=== PATIENT | female | born 1980 | race African-American/Black ===

== ENCOUNTER 2016-04-21 13:43 | Emergency (ER) | payer SELFPAY ==
[2016-04-21 13:57] VITALS: BP 128/90
--- NOTE | 2016-04-21 14:27 | ED ---
Lower Extremity - HPI Summary HPI Summary: Patient presents with right ankle pain after falling last night and hitting her ankle. She was evaluated in this ED for multiple complaints, and all images were read as negative. She has continued pain in the ankle today and wanted to make sure her ankle "really is okay". She has a history of a tib/fib fracture with ORIF and was in a wheelchair for months recovering. She admits she worries about the ankle and doesn't want to go back to a wheelchair. She took half of an 800mg ibuprofen this AM with mild relief and admits the ankle feels better today than it did last night. She has been fully weight bearing on the ankle. - History of Current Complaint Chief Complaint: EDExtremityLower Stated Complaint: RT ANKLE INJURY Time Seen by Provider: 04/21/16 13:58 Hx Obtained From: Patient Hx Last Menstrual Period: 08/13/12 Mechanism Of Injury: Blunt Trauma - hit against the frame of her bed. Onset of Pain: Immediate Onset/Duration: Hours Severity Initially: Severe Severity Currently: Moderate Pain Intensity: 8 Timing: Constant Location: Is Discrete @ - right ankle Character Of Pain: Aching, Stiffness Associated Signs And Symptoms: Positive: Negative Aggravating Factor(s): Standing Alleviating Factor(s): Rest Able to Bear Weight: Yes - with pain - Allergies/Home Medications Allergies/Adverse Reactions: Allergies Allergy/AdvReac Type Severity Reaction Status Date / Time No Known Allergies Allergy Verified 04/21/16 13:56 PMH/Surg Hx/FS Hx/Imm Hx Endocrine/Hematology History: Reports: Hx Anemia Denies: Hx Anticoagulant Therapy, Hx Diabetes, Hx Thyroid Disease Cardiovascular History: Denies: Hx Hypertension, Hx Pacemaker/ICD Respiratory History: Denies: Hx Asthma, Hx Chronic Obstructive Pulmonary Disease (COPD) History: Denies: Hx Renal Disease Musculoskeletal History: Reports: Other Musculoskeletal History - right ankle tib/fib fracture with ORIF Neurological History: Denies: Hx Dementia, Hx Seizures Psychiatric History: Denies: Hx Substance Abuse - Surgical History Surgery Procedure, Year, and Place: RIGHT ANKLE SURGERY - 2003 Infectious Disease History: No Infectious Disease History: Denies: Hx Hepatitis, Hx Human Immunodeficiency Virus (HIV), Traveled Outside the [place] in Last 30 Days - Family History Known Family History: Positive: None - Social History Occupation: Employed Full-time Lives: With Family Alcohol Use: Occasionally Hx Substance Use: Yes Substance Use Type: Reports: Marijuana Substance Use Comment - Amount & Last Used: "once in a while" Hx Tobacco Use: Yes Smoking Status (MU): Heavy Every Day Tobacco Smoker Type: Cigarettes Cessation Counseling: Patient Advised to Stop Review of Systems Positive: Myalgia, Decreased ROM. Negative: Edema Negative: Rash, Bruising Negative: Weakness, Paresthesia, Numbness All Other Systems Reviewed And Are Negative: Yes Physical Exam Triage Information Reviewed: Yes Vital Signs On Initial Exam: Initial Vitals Temp Pulse Resp BP Pulse Ox 99.5 F 91 15 128/90 100 04/21/16 13:45 04/21/16 13:45 04/21/16 13:45 04/21/16 13:45 04/21/16 13:45 Vital Signs Reviewed: Yes Appearance: Positive: Well-Appearing, Pain Distress, Thin Skin: Positive: Warm, Skin Color Reflects Adequate Perfusion, Dry, Soft Head/Face: Positive: Normal Head/Face Inspection Eyes: Positive: EOMI, DAMION, Conjunctiva Clear ENT: Positive: Hearing grossly normal Respiratory/Lung Sounds: Positive: Breath Sounds Present Cardiovascular: Positive: RRR Musculoskeletal: Positive: Limited @ - dorsiflexion to 0, plantar flexion 30; inversion/eversion in 30 degree arc, Pain @ - TTP ATFL and deltoid ligament; non -tender achilles tendson med/lat malleoli; midfoot non-tender. Negative: Edema Right Diagnostics - Vital Signs Vital Signs Temp Pulse Resp BP Pulse Ox 04/21/16 13:45 99.5 F 91 15 128/90 100 - Laboratory Lab Statement: Any lab studies that have been ordered have been reviewed, and results considered in the medical decision making process. Lower Extremity Course/Dx - Course Course Of Treatment: Images from last night were compared with previous x-rays without obvious changes. I recommended the patient use a cane to decrease weight on the ankle and use ibuprofen for pain. - Diagnoses Differential Diagnosis/HQI/PQRI: Positive: Arthritis, Cellulitis, Contusion, Fracture (Closed), Sprain, Strain Provider Diagnoses: Ankle sprain Discharge - Discharge Plan Condition: Stable Disposition: HOME Patient Education Materials: Arthralgia (ED) Forms: *Work Release Referrals: Ab Rivers MD [Medical Doctor] - Additional Instructions: Please use 400mg of ibuprofen three times daily with meals for the next 3-5 days with ice, elevation and a cane to take weight off your ankle to decrease pain and swelling. I've included Dr. Rivers's number if you want to get in touch with an orthopedic doctor for evaluation. Return to the emergency department if your symptoms worsen.
== END 2016-04-21 14:28 | disposition home or self-care (01) ==
LOC: ED 13:43
DX: S93.401A Sprain of unspecified ligament of right ankle, initial encounter (principal); F17.210 Nicotine dependence, cigarettes, uncomplicated; W19.XXXA Unspecified fall, initial encounter; Y92.9 Unspecified place or not applicable
CPT/HCPCS: 99282

== ENCOUNTER 2017-03-04 11:30 | Emergency (ER) | payer MEDICAID ==
[2017-03-04 11:44] VITALS: BP 125/59
--- NOTE | 2017-03-04 11:46 | UC ---
Skin Complaint HPI - HPI Summary HPI Summary: Pt presents with rash to left lower back. She tells me that about 2 weeks ago she developed a scale-like rash to her left lower back. It is itchy and seems to be spreading to her left side and left abdomen. Has tried al butter with no relief. Denies fever, chills, recent illness, ST, SOB, chest pain, abdominal pain, N/V/D/C, dysuria, vaginal discharge or pain, bleeding or drainage from the rash sites. Denies pain, numbness, or tingling. She denies a history of any dermatological disorders. - History of Current Complaint Chief Complaint: UCSkin Time Seen by Provider: 03/04/17 11:46 Stated Complaint: RASH Hx Obtained From: Patient Hx Last Menstrual Period: 02/13/17 Onset/Duration: Gradual Onset - Allergy/Home Medications Allergies/Adverse Reactions: Allergies Allergy/AdvReac Type Severity Reaction Status Date / Time No Known Allergies Allergy Verified 03/04/17 11:44 Review of Systems Constitutional: Negative Skin: Rash - Left lower back, left side, left abdomen. ENT: Negative Respiratory: Negative Cardiovascular: Negative Gastrointestinal: Negative Genitourinary: Negative Neurological: Negative Psychological: Negative All Other Systems Reviewed And Are Negative: Yes PMH/Surg Hx/FS Hx/Imm Hx Previously Healthy: Yes Other History Of: Negative For: Anticoagulant Therapy - Surgical History Surgical History: Yes Surgery Procedure, Year, and Place: RIGHT ANKLE SURGERY - 2003 - Family History Known Family History: Positive: None - Social History Occupation: Employed Full-time Lives: With Family Alcohol Use: Occasionally Substance Use Type: None Substance Use Comment - Amount & Last Used: "once in a while" Smoking Status (MU): Heavy Every Day Tobacco Smoker Type: Cigarettes Amount Used/How Often: 1ppd Household Exposure Type: Cigarettes Cessation Counseling: Counseled 3+Min - 10 Min - Immunization History Most Recent Influenza Vaccination: NOT UTD Most Recent Tetanus Shot: unknown Most Recent Pneumonia Vaccination: never Physical Exam Triage Information Reviewed: Yes Appearance: Well-Appearing, Well-Nourished Vital Signs: Initial Vital Signs Temp 100.1 F 03/04/17 11:39 Pulse 94 03/04/17 11:39 Resp 16 03/04/17 11:39 BP 125/59 03/04/17 11:39 Pulse Ox 97 03/04/17 11:39 Vital Signs Reviewed: Yes ENT: Positive: Pharynx normal, TMs normal, Uvula midline. Negative: Pharyngeal erythema, Nasal congestion, Nasal drainage, TM bulging, TM dull, TM red, Tonsillar swelling, Tonsillar exudate, Sinus tenderness Neck: Positive: Supple, Nontender, No Lymphadenopathy Respiratory: Positive: Chest non-tender, Lungs clear, Normal breath sounds, No respiratory distress, No accessory muscle use Cardiovascular: Positive: RRR, No Murmur, Pulses Normal Abdomen Description: Positive: Nontender, No Organomegaly, Soft. Negative: CVA Tenderness (R), CVA Tenderness (L), Distended, Guarding Bowel Sounds: Positive: Present Neurological: Positive: Alert Psychological: Positive: Age Appropriate Behavior Skin: Positive: Other - On the left flank there is ~9-10cm cluster of 1-2mm papules with scales. Some of these are excoriated. On the left lower side and left abdomen there are scattered 1-2mm papules having the same appearance as those on the left flank. No erythema, edema, drainage, vesicles, or tenderness. Course/Dx - Course Course Of Treatment: Suspect Atopic dermatitis - will try Triamcinolone cream BID for 10 days and have her f/u with dermatology if her symptoms do not start to improve within 3-4 days. - Differential Diagnoses - Skin Complaint Differential Diagnoses: Allergic Reaction, Drug Rash, Eczema, Local Allergic Reaction, Scabies, Systemic Illness, Tick Born Illness, Tinea, Urticaria - Diagnoses Provider Diagnoses: Atopic dermatitis lower back Discharge - Discharge Plan Condition: Stable Disposition: HOME Prescriptions: Triamcinolone 0.1% CREAM(NF) [Kenalog Cream 0.1%(NF)] 1 applic TOPICAL BID #1 tube Patient Education Materials: Eczema (ED) Referrals: Christian Shelby NP [Primary Care Provider] - Mandy Diamond MD [Medical Doctor] - If Needed Additional Instructions: If you develop a fever, SOB, chest pain, new or worsening symptoms - please call your PCP or go to the ED. If your rash worsens or persists beyond 10 days or does not start to improve in 3-4 days, please call dermatology at the number below to schedule a follow up appointment.
== END 2017-03-04 12:09 | disposition home or self-care (01) ==
LOC: UCEAST 11:30
DX: L20.9 Atopic dermatitis, unspecified (principal); F17.210 Nicotine dependence, cigarettes, uncomplicated
CPT/HCPCS: 99212; G0463

== ENCOUNTER 2017-05-18 07:45 | Emergency (ER) | payer OTHER ==
[2017-05-18 08:00] VITALS: BP 140/96
--- NOTE | 2017-05-18 11:45 | ED ---
Jacob Veliz Angela, scribed for Carlin Garcia MD on 05/18/17 at 0822 . Skin Complaint - HPI Summary HPI Summary: This pt is a 36 y/o female presenting to [facility] c/o pruritic rash on bilateral hands. Pt reports she had a kidney infection 1.5 years ago and states this may be returning. She notes her rash on hands is very itchy. Pt has been drinking an increased amount of fluids in the past 2 days. She reports she vomited yesterday from drinking too much water. Denies throat tightening, difficulty breathing, chest pain. Pt additionally states she has watery blisters on her left foot. She reports she had an infection on her left foot 2 years ago. 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 She notes she was prescribed an eczema cream by her editor newspaper but states it is not working. PMHx: kidney infection 1.5 years ago. - History of Current Complaint Chief Complaint: EDRashSkinAbscess Time Seen by Provider: 05/18/17 07:57 Stated Complaint: RASH Hx Obtained From: Patient Hx Last Menstrual Period: 02/13/17 Onset/Duration: Started Days Ago, Still Present Skin Exposure Onset/Duration: Days Ago Timing: Lasting Days Current Severity: None Pain Intensity: 0 - no pain Pain Scale Used: 0-10 Numeric Skin Location: Hand - bilateral, Foot - left Character: Pruritus, Redness Aggravating Symptom(s): Nothing Alleviating Symptom(s): Nothing Associated Signs & Symptoms: Rash - on bilateral hands - Additional Pertinent History Primary Care Physician: [id number] - Allergy/Home Medications Allergies/Adverse Reactions: Allergies Allergy/AdvReac Type Severity Reaction Status Date / Time No Known Allergies Allergy Verified 05/18/17 08:00 PMH/Surg Hx/FS Hx/Imm Hx Endocrine/Hematology History: Reports: Hx Anemia Denies: Hx Anticoagulant Therapy, Hx Diabetes, Hx Thyroid Disease Cardiovascular History: Denies: Hx Hypertension, Hx Pacemaker/ICD Respiratory History: Denies: Hx Asthma, Hx Chronic Obstructive Pulmonary Disease (COPD) History: Denies: Hx Renal Disease Musculoskeletal History: Reports: Other Musculoskeletal History - right ankle tib/fib fracture with ORIF Neurological History: Denies: Hx Dementia, Hx Seizures Psychiatric History: Denies: Hx Substance Abuse - Surgical History Surgery Procedure, Year, and Place: RIGHT ANKLE SURGERY - 2003 Infectious Disease History: No Infectious Disease History: Denies: Hx Hepatitis, Hx Human Immunodeficiency Virus (HIV), Traveled Outside the [place] in Last 30 Days - Family History Known Family History: Positive: None - Social History Alcohol Use: Weekly Hx Substance Use: Yes Substance Use Type: Reports: None Substance Use Comment - Amount & Last Used: "once in a while" Hx Tobacco Use: Yes Smoking Status (MU): Heavy Every Day Tobacco Smoker Type: Cigarettes Amount Used/How Often: 1ppd Review of Systems Negative: Fever, Chills Eyes: Negative ENT: Negative Negative: Chest Pain Negative: Shortness Of Breath Gastrointestinal: Negative Skin: Other - left heel redness Positive: Rash - pruritic All Other Systems Reviewed And Are Negative: Yes Physical Exam - Summary Physical Exam Summary: VITAL SIGNS: Reviewed. GENERAL: Patient is a well-developed and nourished female who is lying comfortable in the stretcher. Patient is not in any acute respiratory distress. HEAD AND FACE: No signs of trauma. No ecchymosis, hematomas or skull depressions. No sinus tenderness. EYES: PERRLA, EOMI x 2, No injected conjunctiva, no nystagmus. EARS: Hearing grossly intact. Ear canals and tympanic membranes are within normal limits. MOUTH: Oropharynx within normal limits. NECK: Supple, trachea is midline, no adenopathy, no JVD, no carotid bruit, no c- spine tenderness, neck with full ROM. CHEST: Symmetric, no tenderness at palpation LUNGS: Clear to auscultation bilaterally. No wheezing or crackles. CVS: Regular rate and rhythm, S1 and S2 present, no murmurs or gallops appreciated. ABDOMEN: Soft, non-tender. No signs of distention. No rebound no guarding, and no masses palpated. Bowel sounds are normal. EXTREMITIES: FROM in all major joints, no edema, no cyanosis or clubbing. NEURO: Alert and oriented x 3. No acute neurological deficits. Speech is normal and follows commands. SKIN: Dry and warm. Pt has vesicular papular rash on hands and erythema in left heel. Triage Information Reviewed: Yes Vital Signs On Initial Exam: Initial Vitals Temp Pulse Resp BP Pulse Ox 99.9 F 98 16 140/96 99 05/18/17 07:50 05/18/17 07:50 03/07/18 07:50 05/18/17 07:50 05/18/17 07:50 Vital Signs Reviewed: Yes Diagnostics - Vital Signs Vital Signs Temp Pulse Resp BP Pulse Ox 05/18/17 07:50 99.9 F 98 16 140/96 99 - Laboratory Lab Statement: Any lab studies that have been ordered have been reviewed, and results considered in the medical decision making process. Course/Dx - Course Assessment/Plan: This pt is a 36 y/o female presenting to [facility] c/o pruritic rash on bilateral hands. Pt reports she had a kidney infection 1.5 years ago and states this may be returning. She notes her rash on hands is very itchy. Pt has been drinking an increased amount of fluids in the past 2 days. She reports she vomited yesterday from drinking too much water. Denies throat tightening, difficulty breathing, chest pain. Pt additionally states she has watery blisters on her left foot. She reports she had an infection on her left foot 2 years ago. 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 The pt seems to be dealing with dyshidrotic eczema on bilateral hands and cellulitis in left heel. She will be given a prescription for corticosteroid (Valisone) and Keflex. She is instructed to follow up with a editor newspaper. Pt will be discharged to home with a referral to a editor newspaper. Pt understands and agrees. Pt is hemodynamically stable, alert and oriented x3. - Diagnoses Provider Diagnoses: Dyshidrotic eczema, Cellulitis Discharge - Discharge Plan Condition: Stable Disposition: HOME Prescriptions: Betamethasone Arely 0.1% CRM(NF) [Valisone 0.1% CM(NF)] 1 applic TOPICAL BID #30 grams Cephalexin CAP* [Keflex CAP*] 250 mg PO TID #30 cap Patient Education Materials: Cellulitis (ED), Dyshidrotic Eczema (ED) Referrals: [facility] [Provider Group] (Address: [address] [place] [address] ) Christian Shelby NP [Primary Care Provider] - Additional Instructions: Please follow up with your primary care provider and editor newspaper. RETURN TO THE ED FOR ANY WORSENING SYMPTOMS. The documentation as recorded by the Jacob bell Angela accurately reflects the service I personally performed and the decisions made by me, Carlin Garcia MD.
== END 2017-05-18 08:35 | disposition home or self-care (01) ==
LOC: ED 07:45
DX: L30.1 Dyshidrosis [pompholyx] (principal); L03.90 Cellulitis, unspecified; R21 Rash and other nonspecific skin eruption; F17.210 Nicotine dependence, cigarettes, uncomplicated
CPT/HCPCS: 99281

== ENCOUNTER 2017-12-08 11:47 | Emergency (ER) | payer OTHER ==
[2017-12-08 12:26] VITALS: BP 135/91
--- NOTE | 2017-12-08 12:43 | UC ---
Skin Complaint HPI - HPI Summary HPI Summary: 37 y/o female presents to the urgent care c/o B/L hand and left forearm w/ an itchy and painful rash for the past week. 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 She states she had a similar rash about 6 months ago and was Rx an steroidal cream which resolved rash. But now it has returned. She first develops some blisters and then it becomes like papule. the left arm in now warm to touch and painful. Pain is dull,, 3/10. She has used OTC creams w /o any improvement. Pt denies fever, SOB, chest pain, abdominal pain, N/V/D. - History of Current Complaint Chief Complaint: UCSkin Time Seen by Provider: 12/08/17 12:42 Stated Complaint: RASH CONGESTION Hx Obtained From: Patient Hx Last Menstrual Period: 11/19/17 Onset/Duration: Gradual Onset, Lasting Weeks - 1 week, Still Present, Worse Since - today Skin Exposure Onset/Duration: Weeks Ago - same rash on B/l hands on and off since last year, but lately has worsen for the past week, Worse Since: - today Timing: Constant Onset Severity: Mild Current Severity: Moderate Pain Intensity: 8 - at touch Pain Scale Used: 0-10 Numeric Location: Diffuse - b/L hands, Hand (Left) - left fore arm similar rash but it is co-infected Character: Swelling, Pruritus, Pain, Redness Aggravating Factor(s): Touch Alleviating Factor(s): OTC Creams/Salves - Allergy/Home Medications Allergies/Adverse Reactions: Allergies Allergy/AdvReac Type Severity Reaction Status Date / Time No Known Allergies Allergy Verified 12/08/17 12:21 Review of Systems Constitutional: Negative Skin: Rash - B/L hands and left fore arm w/ a painful and itchy rash Eyes: Negative ENT: Negative Respiratory: Negative Cardiovascular: Negative Gastrointestinal: Negative Genitourinary: Negative Motor: Negative Neurovascular: Negative Musculoskeletal: Other: - B/L hand and left forearm pain s/p rash Neurological: Negative Psychological: Negative Is Patient Immunocompromised?: No All Other Systems Reviewed And Are Negative: Yes PMH/Surg Hx/FS Hx/Imm Hx Other History Of: Negative For: Anticoagulant Therapy - Surgical History Surgical History: Yes Surgery Procedure, Year, and Place: RIGHT ANKLE SURGERY - 2003 - Family History Known Family History: Positive: None - Social History Alcohol Use: Weekly Substance Use Type: None Substance Use Comment - Amount & Last Used: "once in a while" Smoking Status (MU): Heavy Every Day Tobacco Smoker Type: Cigarettes Amount Used/How Often: 1ppd Household Exposure Type: Cigarettes - Immunization History Most Recent Influenza Vaccination: NOT UTD Most Recent Tetanus Shot: unknown Most Recent Pneumonia Vaccination: never Physical Exam - Summary Physical Exam Summary: Vital Signs Reviewed: Yes General: well developed, well nourished female sitting in the examining table w/ o any apparent distress. Eyes: Positive: Conjunctiva Clear - PERRLA, EOMI ENT: Positive: Normal ENT inspection, Hearing grossly normal, Pharynx normal, TMs normal Neck: Positive: Supple, Nontender, No Lymphadenopathy Respiratory: Positive: Chest nontender, Lungs clear, Normal breath sounds Cardiovascular: Positive: RRR, No Murmur, Pulses Normal Abdomen Description: Positive: Nontender, No Organomegaly, Soft. Negative: CVA Tenderness (R), CVA Tenderness (L) Bowel Sounds: Positive: Present Musculoskeletal: Positive: Strength Intact, ROM Intact, No Edema Neurological Exam: Normal Psychological Exam: Normal Skin: Positive: rashes -b/L hand and left fore arms w/ erythematous maculopapular eruption. The left forearm rash has surrounding erythema w/ indistinct borders, warm to touch, swelling and tender to palpation, sensation intact, capillary refill intact, pulses WNL, FROM of upper extremities. Triage Information Reviewed: Yes Vital Signs: Initial Vital Signs Temp 98.1 F 12/08/17 12:21 Pulse 85 12/08/17 12:21 Resp 20 12/08/17 12:21 BP 135/91 12/08/17 12:21 Pulse Ox 100 12/08/17 12:21 Course/Dx - Course Course Of Treatment: 37 y/o female presents to the urgent care c/o B/L hand and left forearm w/ an itchy and painful rash for the past week. 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 She states she had a similar rash about 6 months ago and was Rx an steroidal cream which resolved rash. But now it has returned. She first develops some blisters and then it becomes like papule. the left arm in now warm to touch and painful. Pain is dull,, 3/10. She has used OTC creams w/o any improvement. Pt denies fever, SOB, chest pain, abdominal pain, N/V/D.Hx obtained. Pt w/ Left forearm cellultis and probably a contact dermatitis on examination. Pt Rx Keflex PO and Bethametasone topical cream. Srongy advised to keep hands lubricated and wear gloves to wash dishes. Pt also given House Piping Inspector referral to [facility] treatment if not improvement of rash. Pt's BP is elevated today advised to decrease salt in diet, monitor BP and f/u with PCP for further management. D/C instructions explained. Pt understood and agreed w/ plan of care. - Differential Diagnoses - Skin Complaint Differential Diagnoses: Abscess, Cellulitis, Contact Dermatitis, Eczema, Local Allergic Reaction, Poison Kay, Poison [place], Urticaria - Diagnoses Provider Diagnoses: 1- B/L hand contact dermatitis. 2-Left forearm cellulitis. 3-Elevated BP w/o Hx of HTN Discharge - Sign-Out/Discharge Documenting (check all that apply): Patient Departure - D/c home All imaging exams completed and their final reports reviewed: No Studies - Discharge Plan Condition: Stable Disposition: HOME Prescriptions: Betamethasone Arely 0.1% CRM(NF) [Valisone 0.1% CM(NF)] 1 applic TOPICAL BID #1 tube Cephalexin CAP* [Keflex CAP*] 500 mg PO QID #28 cap Patient Education Materials: Contact Dermatitis (ED), Cellulitis (ED) Forms: *Work Release Referrals: Olamide Bray [Medical Doctor] - Christian Shelby NP [Primary Care Provider] - 3 Days Additional Instructions: 1-Please take full course of Antibiotic. 2- Please apply Bethametasone topical cream as directed. Wear cotton gloves at all times and if your have to wash dishes wear plastic gloves. Keeps hand dry. 2- If redness and swelling doubles in size after 48 hrs of taking antibiotic and fever develops please go to the ER immediately. 3-Take Ibuprofen PO or Tylenol PO to alleviate pain. 4-Please F/u with House Piping Inspector Dr Bray for further management on your chronic rash. 5-Your BP is elevated today. please decrease salt in your diet, monitor BP and if it continues to be elevated please f/u with your PCP for further management - Billing Disposition and Condition Condition: STABLE Disposition: Home - Attestation Statements Provider Attestation: I was available for consult. This patient was seen by the [facility]. The patient was not presented to, seen by, or examined by me. -Maritza
== END 2017-12-08 13:24 | disposition home or self-care (01) ==
LOC: UCEAST 11:47
DX: L25.9 Unspecified contact dermatitis, unspecified cause (principal); L03.114 Cellulitis of left upper limb; R03.0 Elevated blood-pressure reading, without diagnosis of hypertension; F17.210 Nicotine dependence, cigarettes, uncomplicated
CPT/HCPCS: 99212; G0463

== ENCOUNTER 2018-03-12 14:37 | Emergency (ER) | payer OTHER ==
--- NOTE | 2018-03-12 16:40 | ED ---
Skin Complaint - HPI Summary HPI Summary: 37-year-old female presents with rash for the past couple days. She states she has had this rash in the past. She states that she treated with steroid cream and antibiotic. States she has some antibiotics left over from last time she had a rash and she's been taking them without any relief for past 4 days. She does not have any of the cream left. She states that the rash started with some water blisters on her feet and then she developed the rash on her hands. In then spreads to her neck and abdomen. She denies any fevers. She states her rash is itchy. She has been seen by dermatology before for this. No chest pain, shortness of breath, cough, abdominal pain, or urinary symptoms. - History of Current Complaint Chief Complaint: EDRashSkinAbscess Time Seen by Provider: 03/12/18 16:08 Stated Complaint: HAND HURT Hx Last Menstrual Period: 11/19/17 Pain Intensity: 0 - Additional Pertinent History Primary Care Physician: AFTAB - Allergy/Home Medications Allergies/Adverse Reactions: Allergies Allergy/AdvReac Type Severity Reaction Status Date / Time No Known Allergies Allergy Verified 03/12/18 14:43 PMH/Surg Hx/FS Hx/Imm Hx Endocrine/Hematology History: Reports: Hx Anemia Denies: Hx Anticoagulant Therapy, Hx Diabetes, Hx Thyroid Disease Cardiovascular History: Denies: Hx Hypertension, Hx Pacemaker/ICD Respiratory History: Denies: Hx Asthma, Hx Chronic Obstructive Pulmonary Disease (COPD) GI History: Denies: Hx Ulcer History: Denies: Hx Renal Disease Musculoskeletal History: Reports: Other Musculoskeletal History - right ankle tib/fib fracture with ORIF Neurological History: Denies: Hx Dementia, Hx Seizures Psychiatric History: Denies: Hx Substance Abuse - Surgical History Surgery Procedure, Year, and Place: RIGHT ANKLE SURGERY - 2003 Infectious Disease History: No Infectious Disease History: Denies: Hx Hepatitis, Hx Human Immunodeficiency Virus (HIV), Traveled Outside the [place] in Last 30 Days - Family History Known Family History: Positive: None - Social History Alcohol Use: Weekly Hx Substance Use: Yes Substance Use Type: Reports: Marijuana Substance Use Comment - Amount & Last Used: "once in a while" Hx Tobacco Use: Yes Smoking Status (MU): Heavy Every Day Tobacco Smoker Type: Cigarettes Amount Used/How Often: 1ppd Review of Systems Negative: Fever Negative: Chest Pain Negative: Shortness Of Breath Positive: Rash All Other Systems Reviewed And Are Negative: Yes Physical Exam Triage Information Reviewed: Yes Vital Signs On Initial Exam: Initial Vitals Temp Pulse Resp BP Pulse Ox 98.9 F 93 16 141/101 98 03/12/18 14:43 03/12/18 14:43 03/12/18 14:43 03/12/18 14:43 03/12/18 14:43 Vital Signs Reviewed: Yes Appearance: Positive: Well-Appearing Skin: Positive: Warm, Dry, Other - papular lesions on hands, stomach and neck Head/Face: Positive: Normal Head/Face Inspection Eyes: Positive: Normal, Conjunctiva Clear ENT: Positive: Pharynx normal Respiratory/Lung Sounds: Positive: Clear to Auscultation, Breath Sounds Present Cardiovascular: Positive: Normal, RRR Musculoskeletal: Positive: Normal Neurological: Positive: Normal Psychiatric: Positive: Normal Diagnostics - Vital Signs Vital Signs Temp Pulse Resp BP Pulse Ox 03/12/18 14:43 98.9 F 93 16 141/101 98 - Laboratory Lab Statement: Any lab studies that have been ordered have been reviewed, and results considered in the medical decision making process. Course/Dx - Course Course Of Treatment: 37-year-old female presents with rash for the past couple days. She states she has had this rash in the past. She states that she treated with steroid cream and antibiotic. States she has some antibiotics left over from last time she had a rash and she's been taking them without any relief for past 4 days. She does not have any of the cream left. She states that the rash started with some water blisters on her feet and then she developed the rash on her hands. In then spreads to her neck and abdomen. She denies any fevers. She states her rash is itchy. She has been seen by dermatology before for this. No chest pain, shortness of breath, cough, abdominal pain, or urinary symptoms. on exam has papules on hands, neck and abd. no evidence of cellulitis at the moment. patient requesting script for antibiotics so will send script but advised to wait until develops signs of cellulitis such as spreading redness. advised not to itch the area. gave script for triaminolone and told to follow up with derm if no improvement. patient understand and agrees with plan. - Differential Diagnoses - Skin Complaint Differential Diagnoses: Cellulitis, Contact Dermatitis, Eczema - Diagnoses Provider Diagnoses: Eczema Discharge - Sign-Out/Discharge Documenting (check all that apply): Patient Departure - Discharge Plan Condition: Good Disposition: HOME Prescriptions: Cephalexin CAP* [Keflex CAP*] 500 mg PO BID #14 cap Triamcinolone 0.1% OINT(NF) [Kenalog 0.1% OINT(NF)] 1 applic .SEE ORDER BID #1 applic Patient Education Materials: Eczema (ED) Referrals: Christian Shelby NP [Primary Care Provider] - Additional Instructions: apply triamcinolone twice a day for 10 days Start keflex if notice spreading redness to area, take twice a day for 7 days Follow up with dermatology Return to ED if develop any new or worsening symptoms - Billing Disposition and Condition Condition: GOOD Disposition: Home
[2018-03-12 16:55] VITALS: BP 0/0
== END 2018-03-12 16:54 | disposition home or self-care (01) ==
LOC: ED 14:37
DX: L30.9 Dermatitis, unspecified (principal)
CPT/HCPCS: 99282

== ENCOUNTER 2018-08-28 17:41 | Emergency (ER) | payer SELFPAY ==
[2018-08-28] MEDS ORDERED: NS 0.9% 1000 ML** 1,000 ML IV ONE (20:44)
[2018-08-28] MEDS ORDERED: Ketorolac INJ* 30 MG/ML 1 ML VIAL IV PUSH ONE (20:44)
[2018-08-28 21:29] LABS: Hematocrit 27 % (35-47); Hemoglobin 8.6 g/dL (12.0-16.0); Mean Corpuscular HGB Conc 32 g/dL (31-36); Mean Corpuscular Hemoglobin 23 pg (27-31); Mean Corpuscular Volume 71 fL (80-97); Mean Platelet Volume 10.9 fL (7.4-10.4); Platelet Count 398 10^3/uL (150-450); Red Cell Distribution Width 26 % (10-15); White Blood Count 9.5 10^3/uL (3.5-10.8)
[2018-08-28 21:36] LABS: Albumin 3.8 g/dL (3.2-5.2); Albumin/Globulin Ratio 1.2 (1-3); BUN/Creatinine Ratio 11.5 (8-20); C Reactive Protein 3.74 mg/L (<8.01); Calcium 8.8 mg/dL (8.6-10.3); EGFR African American 88.2 (>60); EGFR Non-African American 72.9 (>60); Globulin 3.3 g/dL (2-4); Magnesium 2.1 mg/dL (1.9-2.7); Total Bilirubin 0.3 mg/dL (0.2-1.0); Total Protein 7.1 g/dL (6.4-8.9)
--- NOTE | 2018-08-28 21:44 | ED ---
Headache - HPI Summary HPI Summary: 37-year-old female presents with rash on her feet and hands for the past week. She also admits to headache. She admits to some chest tightness. She states chest tightness has resolved. She denies any shortness breath. No palpitations. No abdominal pain. No nausea vomiting. Denies any urinary symptoms. Does have a history of kidney infection. Has been treated for eczema for her hands but has not been working with cream prescribed. She followed up with dermatology and they did not help at all per patient. Denies any fevers or chills. - History Of Current Complaint Chief Complaint: EDHeadache Stated Complaint: HEADACHE, RASH ON HAND/BACK PER PT Time Seen by Provider: 08/28/18 20:36 Hx Last Menstrual Period: 11/19/17 - Allergies/Home Medications Allergies/Adverse Reactions: Allergies Allergy/AdvReac Type Severity Reaction Status Date / Time No Known Allergies Allergy Verified 08/28/18 17:47 PMH/Surg Hx/FS Hx/Imm Hx Endocrine/Hematology History: Reports: Hx Anemia Denies: Hx Anticoagulant Therapy, Hx Diabetes, Hx Thyroid Disease Cardiovascular History: Denies: Hx Hypertension, Hx Pacemaker/ICD Respiratory History: Denies: Hx Asthma, Hx Chronic Obstructive Pulmonary Disease (COPD) GI History: Denies: Hx Ulcer History: Denies: Hx Renal Disease Musculoskeletal History: Reports: Other Musculoskeletal History - right ankle tib/fib fracture with ORIF Neurological History: Denies: Hx Dementia, Hx Seizures Psychiatric History: Denies: Hx Substance Abuse - Surgical History Surgery Procedure, Year, and Place: RIGHT ANKLE SURGERY - 2003 Infectious Disease History: No Infectious Disease History: Denies: Hx Hepatitis, Hx Human Immunodeficiency Virus (HIV), Traveled Outside the [place] in Last 30 Days - Family History Known Family History: Positive: None - Social History Alcohol Use: Weekly Hx Substance Use: Yes Substance Use Type: Reports: Marijuana Substance Use Comment - Amount & Last Used: "once in a while" Hx Tobacco Use: Yes Smoking Status (MU): Heavy Every Day Tobacco Smoker Type: Cigarettes Amount Used/How Often: 1ppd Review of Systems Negative: Fever Positive: Chest Pain Negative: Shortness Of Breath, Cough Positive: Rash Positive: Headache All Other Systems Reviewed And Are Negative: Yes Physical Exam Triage Information Reviewed: Yes Vital Signs On Initial Exam: Initial Vitals Temp Pulse Resp BP Pulse Ox 98.1 F 98 20 134/82 100 08/28/18 17:43 08/28/18 17:43 08/28/18 17:43 08/28/18 17:43 08/28/18 17:43 Vital Signs Reviewed: Yes Appearance: Positive: Well-Appearing Skin: Positive: Warm, Dry, Other Head/Face: Positive: Normal Head/Face Inspection Eyes: Positive: Normal, EOMI, DAMION, Conjunctiva Clear ENT: Positive: Normal ENT inspection, Pharynx normal, TMs normal Respiratory/Lung Sounds: Positive: Clear to Auscultation, Breath Sounds Present Cardiovascular: Positive: Normal, RRR Diagnostics - Vital Signs Vital Signs Temp Pulse Resp BP Pulse Ox 08/28/18 20:18 98 F 87 18 111/89 100 08/28/18 17:43 98.1 F 98 20 134/82 100 - Laboratory Lab Results: Lab Results 08/28/18 08/28/18 08/28/18 Range/Units 21:11 21:11 21:11 WBC 9.5 (3.5-10.8) 10^3/uL RBC 3.80 (3.70-4.87) 10^6 /uL Hgb 8.6 L (12.0-16.0) g/dL Hct 27 L (35-47) % MCV 71 L (80-97) fL MCH 23 L (27-31) pg MCHC 32 (31-36) g/dL RDW 26 H (10-15) % Plt Count 398 (150-450) 10^3/uL MPV 10.9 H (7.4-10.4) fL Neut % (Auto) Pending Lymph % (Auto) Pending [place] % (Auto) Pending Eos % (Auto) Pending Baso % (Auto) Pending Absolute Neuts (auto) Pending Absolute Lymphs (auto) Pending Absolute Monos (auto) Pending Absolute Eos (auto) Pending Absolute Basos (auto) Pending Absolute Nucleated RBC Pending Nucleated RBC % Pending Sodium 137 (135-145) mmol/L Potassium 4.0 (3.5-5.0) mmol/L Chloride 107 (101-111) mmol/L Carbon Dioxide 25 (22-32) mmol/L Anion Gap 5 (2-11) mmol/L BUN 10 (6-24) mg/dL Creatinine 0.87 (0.51-0.95) mg/dL Est GFR ( Amer) 88.2 (>60) Est GFR (Non-Af Amer) 72.9 (>60) BUN/Creatinine Ratio 11.5 (8-20) Glucose 93 (70-100) mg/dL Lactic Acid 1.2 (0.5-2.0) mmol/L Calcium 8.8 (8.6-10.3) mg/dL Magnesium 2.1 (1.9-2.7) mg/dL Total Bilirubin 0.30 (0.2-1.0) mg/dL AST 16 (13-39) U/L ALT 9 (7-52) U/L Alkaline Phosphatase 48 (34-104) U/L Troponin I 0.00 (<0.04) ng/mL C-Reactive Protein 3.74 (<8.01) mg/L Total Protein 7.1 (6.4-8.9) g/dL Albumin 3.8 (3.2-5.2) g/dL Globulin 3.3 (2-4) g/dL Albumin/Globulin Ratio 1.2 (1-3) Lipase 35 (11.0-82.0) U/L Result Diagrams: 08/28/18 21:11 08/28/18 21:11 Lab Statement: Any lab studies that have been ordered have been reviewed, and results considered in the medical decision making process. - EKG No standard instances Cardiac Rate: NL EKG Rhythm: Sinus Rhythm Summary of EKG Findings: sinus rhythm Re-Evaluation - Re-Evaluation First Eval Change: Improved Comment: headache resolves, no chest pain Headache Course/Dx - Course Course Of Treatment: 37-year-old female presents with rash on her feet and hands for the past week. She also admits to headache. She admits to some chest tightness. She states chest tightness has resolved. She denies any shortness breath. No palpitations. No abdominal pain. No nausea vomiting. Denies any urinary symptoms. Does have a history of kidney infection. Has been treated for eczema for her hands but has not been working with cream prescribed. She followed up with dermatology and they did not help at all per patient. Denies any fevers or chills. On exam has blister like lesions on hands and feet most consistent with dyshidrotic eczema. No signs of secondary infection. Lab work within normal limits. Gave Toradol fluids and feeling better. Headache has resolved. no recurrent chest pain. EKG shows sinus rhythm. We'll have follow-up with primary about headache and chest pain. We' ll have follow-up with dermatology about eczema. gave short course of steroids as patient states that rash has been getting worse. Also gave topical steroid and antibiotic. Patient understands agrees the plan. - Diagnoses Differential Diagnosis/HQI/PQRI: Tension Headache, Viral Syndrome, Other - dyshidrotic eczema Provider Diagnoses: Headache, Rash, Atypical chest pain Discharge - Sign-Out/Discharge Documenting (check all that apply): Patient Departure Patient Received Moderate/Deep Sedation with Procedure: No - Discharge Plan Condition: Good Disposition: HOME Prescriptions: methylPREDNISolone [Medrol Dosepak 4 MG*] 4 mg PO .SEE FREEDOM INSTRUCTION #1 packet Triamcinolone 0.1% OINT(NF) [Kenalog 0.1% OINT(NF)] 1 applic .SEE ORDER BID #1 applic Patient Education Materials: Dyshidrotic Eczema (ED) Referrals: Christian Shelby NP [Primary Care Provider] - Len Whitman MD [Medical Doctor] - Additional Instructions: take steroid package as prescribed Take tyenlol or ibuprofen every 6 hours as needed for pain apply topical antibiotic follow up with dermatology follow up with primary Return to ED if develop any new or worsening symptoms - Billing Disposition and Condition Condition: GOOD Disposition: Home
[2018-08-28 21:45] LABS: Microcytosis 1+; Platelet Morphology Large
[2018-08-28 21:47] LABS: ABS Basophils 0.2 10^3/ul (0-0.2); ABS Eosinophils 0.4 10^3/ul (0-0.6); ABS Lymphocytes 2.9 10^3/ul (1.0-4.8); ABS Monocytes 1.2 10^3/ul (0-0.8); ABS Neutrophils 4.9 10^3/ul (1.5-7.7); Eosinophil % 3.9 %; Lymphocyte % 30.8 %; Nucleated Red Blood Cells % 0.1
[2018-08-28] MEDS ORDERED: methylPREDNISolone 125 MG* 2 ML VIAL IV ONE (22:03)
[2018-08-28] MEDS ORDERED: Bacitracin OINTMENT* 0.5% 0.5 oz TUBE TOPICAL ONE (22:03)
[2018-08-28 23:03] VITALS: BP 122/75
== END 2018-08-28 22:50 | disposition home or self-care (01) ==
LOC: ED 17:41
DX: R51 Headache (principal); R07.89 Other chest pain; R21 Rash and other nonspecific skin eruption; F17.210 Nicotine dependence, cigarettes, uncomplicated
CPT/HCPCS: 36415; 80053; 83605; 83690; 83735; 84484; 85025; 85060; 86140; 93005; 96361; 96374; 96375; 99283; A9270-GY; J1885; J2930

== ENCOUNTER 2018-10-25 08:17 | Emergency (ER) | payer SELFPAY ==
[2018-10-25 08:21] VITALS: BP 138/85
--- NOTE | 2018-10-25 08:36 | ED ---
Skin Complaint - HPI Summary HPI Summary: 37-year-old female presents with rash on hands for the past couple days. She states that she's had this rash in the past. Denies any new soaps or products. No new contacts. She states that in the past rash responded well to medrol. She states that she is using triamcinolone but the creams working any more. She denies any fevers. No spreading redness redness. She states is very itchy. She states she has been trying not to scratch at it. She has been not been keeping her hands moist. Denies any other symptoms. - History of Current Complaint Chief Complaint: EDRashSkinAbscess Time Seen by Provider: 10/25/18 08:29 Stated Complaint: RASH ON HANDS PER PT Hx Last Menstrual Period: 11/19/17 Pain Intensity: 0 - Additional Pertinent History Primary Care Physician: [id number] - Allergy/Home Medications Allergies/Adverse Reactions: Allergies Allergy/AdvReac Type Severity Reaction Status Date / Time No Known Allergies Allergy Verified 10/25/18 08:22 PMH/Surg Hx/FS Hx/Imm Hx Endocrine/Hematology History: Reports: Hx Anemia Denies: Hx Anticoagulant Therapy, Hx Diabetes, Hx Thyroid Disease Cardiovascular History: Denies: Hx Hypertension, Hx Pacemaker/ICD Respiratory History: Denies: Hx Asthma, Hx Chronic Obstructive Pulmonary Disease (COPD) GI History: Denies: Hx Ulcer History: Denies: Hx Renal Disease Musculoskeletal History: Reports: Other Musculoskeletal History - right ankle tib/fib fracture with ORIF Neurological History: Denies: Hx Dementia, Hx Seizures Psychiatric History: Denies: Hx Substance Abuse - Surgical History Surgery Procedure, Year, and Place: RIGHT ANKLE SURGERY - 2003 Infectious Disease History: No Infectious Disease History: Denies: Hx Hepatitis, Hx Human Immunodeficiency Virus (HIV), Traveled Outside the [place] in Last 30 Days - Family History Known Family History: Positive: None - Social History Alcohol Use: Weekly Hx Substance Use: Yes Substance Use Type: Reports: Marijuana Substance Use Comment - Amount & Last Used: "once in a while" Hx Tobacco Use: Yes Smoking Status (MU): Heavy Every Day Tobacco Smoker Type: Cigarettes Amount Used/How Often: 1ppd Review of Systems Negative: Fever Negative: Chest Pain Negative: Shortness Of Breath Positive: Rash All Other Systems Reviewed And Are Negative: Yes Physical Exam Triage Information Reviewed: Yes Vital Signs On Initial Exam: Initial Vitals Temp Pulse Resp BP Pulse Ox 99.3 F 78 16 138/85 99 10/25/18 08:18 10/25/18 08:18 10/25/18 08:18 10/25/18 08:18 10/25/18 08:18 Vital Signs Reviewed: Yes Appearance: Positive: Well-Appearing Skin: Positive: Warm, Dry, Other - vesicular papular rash on hands Head/Face: Positive: Normal Head/Face Inspection Eyes: Positive: Normal, Conjunctiva Clear ENT: Positive: Pharynx normal Respiratory/Lung Sounds: Positive: Clear to Auscultation, Breath Sounds Present Cardiovascular: Positive: Normal, RRR Musculoskeletal: Positive: Normal Neurological: Positive: Normal Psychiatric: Positive: Normal Diagnostics - Vital Signs Vital Signs Temp Pulse Resp BP Pulse Ox 10/25/18 08:18 99.3 F 78 16 138/85 99 - Laboratory Lab Statement: Any lab studies that have been ordered have been reviewed, and results considered in the medical decision making process. Course/Dx - Course Course Of Treatment: 37-year-old female presents with rash on hands for the past couple days. She states that she's had this rash in the past. Denies any new soaps or products. No new contacts. She states that in the past rash responded well to medrol. She states that she is using triamcinolone but the creams working any more. She denies any fevers. No spreading redness redness. She states is very itchy. She states she has been trying not to scratch at it. She has been not been keeping her hands moist. Denies any other symptoms. On exam has a vascular papular rash on bilateral hands. Although it appears mild at this time will place on short course of steroids to help prevent it from getting worst. No evidence of secondary infection. Will place on betamethasone to see if that works better. 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 Patient understands agrees with plan. - Differential Diagnoses - Skin Complaint Differential Diagnoses: Cellulitis, Contact Dermatitis, Eczema - Diagnoses Provider Diagnoses: Dyshidrotic eczema Discharge - Sign-Out/Discharge Documenting (check all that apply): Patient Departure Patient Received Moderate/Deep Sedation with Procedure: No - Discharge Plan Condition: Good Disposition: HOME Prescriptions: Betamethasone Arely 0.1% CM(NF) [Valisone 0.1% CM(NF)] 1 applic TOPICAL BID #1 applic methylPREDNISolone [Medrol Dosepak 4 MG*] 4 mg PO .SEE FREEDOM INSTRUCTION #1 packet Patient Education Materials: Dyshidrotic Eczema (ED) Referrals: Christian Shelby NP [Primary Care Provider] - Additional Instructions: use betamethasone twice a day to hands use steriod packet as prescribed after washing hands apply vaseline Follow up with dermatology Return to ED if develop any new or worsening symptoms - Billing Disposition and Condition Condition: GOOD Disposition: Home - Attestation Statements Provider Attestation: I was available for consult. This patient was seen by the [facility]. The patient was not presented to, seen by, or examined by me. -Maritza
== END 2018-10-25 08:43 | disposition home or self-care (01) ==
LOC: ED 08:17
DX: L30.1 Dyshidrosis [pompholyx] (principal); F17.210 Nicotine dependence, cigarettes, uncomplicated
CPT/HCPCS: 99282

== ENCOUNTER 2019-04-26 09:30 | Emergency (ER) | payer OTHER ==
[2019-04-26] MEDS ORDERED: Ibuprofen TAB* 600 MG PO ONE (09:44)
--- NOTE | 2019-04-26 09:45 | ED ---
Influenza-Like Illness - HPI Summary HPI Summary: 38-year-old female presents to the emergency department today complaining of productive cough, fever, joint pain, sore throat, chest wall pain, fatigue which began yesterday. Patient states she has no flu exposure and has not received the influenza vaccination this year. Patient states she took NyQuil and DayQuil for her symptoms however has not taken any medication this morning. Patient states she otherwise feels well and denies chest pain, nausea, vomiting , diarrhea, rash, pain with urination. Surgical and family history are noncontributory. - History of Current Complaint Chief Complaint: EDFluSymptoms Time Seen by Provider: 04/26/19 09:36 Hx Obtained From: Patient Onset/Duration: Gradual Onset Severity: Moderate Associated Signs & Symptoms: Fever, Cough, Sore Throat, Nasal Congestion - Allergy/Home Medications Allergies/Adverse Reactions: Allergies Allergy/AdvReac Type Severity Reaction Status Date / Time No Known Allergies Allergy Verified 04/26/19 09:36 Home Medications: Home Medications NK [No Home Medications Reported] 04/26/19 [History Confirmed 04/26/19] PMH/Surg Hx/FS Hx/Imm Hx Endocrine/Hematology History: Reports: Hx Anemia Denies: Hx Anticoagulant Therapy, Hx Diabetes, Hx Thyroid Disease Cardiovascular History: Denies: Hx Hypertension, Hx Pacemaker/ICD Respiratory History: Denies: Hx Asthma, Hx Chronic Obstructive Pulmonary Disease (COPD) GI History: Denies: Hx Ulcer History: Denies: Hx Renal Disease Musculoskeletal History: Reports: Other Musculoskeletal History - right ankle tib/fib fracture with ORIF Neurological History: Denies: Hx Dementia, Hx Seizures Psychiatric History: Denies: Hx Substance Abuse - Surgical History Surgery Procedure, Year, and Place: RIGHT ANKLE SURGERY - 2003 Infectious Disease History: No Infectious Disease History: Denies: Hx Hepatitis, Hx Human Immunodeficiency Virus (HIV), Traveled Outside the [place] in Last 30 Days - Family History Known Family History: Positive: None - Social History Alcohol Use: Weekly Hx Substance Use: Yes Substance Use Type: Reports: Marijuana Substance Use Comment - Amount & Last Used: "once in a while" Hx Tobacco Use: Yes Smoking Status (MU): Heavy Every Day Tobacco Smoker Type: Cigarettes Amount Used/How Often: 1ppd Review of Systems Positive: Fever, Chills, Fatigue Eyes: Negative ENT: Negative Cardiovascular: Negative Positive: Shortness Of Breath, Cough Gastrointestinal: Negative Genitourinary: Negative Musculoskeletal: Negative Skin: Negative Positive: Headache Psychological: Normal All Other Systems Reviewed And Are Negative: Yes Physical Exam Triage Information Reviewed: Yes Vital Signs On Initial Exam: Initial Vitals Temp Pulse Resp BP Pulse Ox 99.5 F 111 16 137/79 96 04/26/19 09:33 04/26/19 09:33 04/26/19 09:33 04/26/19 09:33 04/26/19 09:33 Vital Signs Reviewed: Yes Appearance: Positive: Well-Appearing, No Pain Distress, Well-Nourished Skin: Positive: Warm, Skin Color Reflects Adequate Perfusion Eyes: Positive: EOMI, DAMION ENT: Positive: Hearing grossly normal Neck: Positive: Nontender Respiratory/Lung Sounds: Positive: Clear to Auscultation, Breath Sounds Present Cardiovascular: Positive: RRR, S1, S2 Abdomen Description: Positive: Nontender, Soft Bowel Sounds: Positive: Present Musculoskeletal: Positive: Strength/ROM Intact Neurological: Positive: Sensory/Motor Intact, Alert, Oriented to Person Place, Time, Normal Gait, Facial Symmetry, Speech Normal Psychiatric: Positive: Normal, Affect/Mood Appropriate AVPU Assessment: Alert Procedures - Sedation Patient Received Moderate/Deep Sedation with Procedure: No Diagnostics - Vital Signs Vital Signs Temp Pulse Resp BP Pulse Ox 04/26/19 09:33 99.5 F 111 16 137/79 96 - Laboratory Lab Statement: Any lab studies that have been ordered have been reviewed, and results considered in the medical decision making process. Flu Symptom Course/Dx - Course Course Of Treatment: Patient was evaluated in the emergency department today for flulike symptoms. Vitals noted. Patient given ibuprofen for fever. Chest x-ray negative for pathology. Influenza serology returned showing positive influenza B. Patient was given 1 dose of TAMIFLU here in the emergency department as well as a prescription to continue taking this for the next 5 days. Patient discharged to outpatient follow-up. - Diagnoses Differential Diagnosis/HQI/PQRI: Positive: Bronchitis, Influenza, Pneumonia, RSV Provider Diagnoses: Influenza B Discharge ED - Sign-Out/Discharge Documenting (check all that apply): Patient Departure - Discharge Plan Condition: Stable Disposition: HOME Patient Education Materials: Influenza (ED) Forms: *Work Release Referrals: Christian Shelby NP [Primary Care Provider] - 3 Days Additional Instructions: You were seen in the emergency department today and diagnosed with influenza. This is an upper respiratory virus which causes cough, muscle aches, fever, nausea, trouble breathing. Viruses are self-limiting and will go away on their own. Be sure to stay hydrated and rest. You may take [id number] decongestants as needed for your symptoms as well as NyQuil at night to improve sleep. Take Tylenol every 6 hours as needed for fever. Please see your primary care physician in 5 days for further evaluation and management. Please do not return to work or school until 24 hours after your fever breaks. Please return to the emergency department immediately if you develop any new or worsening symptoms. Take tamiflu every 12 hours for 5 days. - Billing Disposition and Condition Condition: STABLE Disposition: Home
[2019-04-26 09:57] LABS: Influenza B Molecular POSITIVE (Negative)
[2019-04-26] MEDS ORDERED: Oseltamivir CAP* 75 MG CAP PO ONE (10:12)
[2019-04-26 10:39] VITALS: BP 142/76
== END 2019-04-26 10:39 | disposition home or self-care (01) ==
LOC: ED 09:30
DX: J10.1 Influenza due to other identified influenza virus with other respiratory manifestations (principal); R05 Cough; R50.9 Fever, unspecified; J02.9 Acute pharyngitis, unspecified; R09.81 Nasal congestion; F17.210 Nicotine dependence, cigarettes, uncomplicated; R06.02 Shortness of breath; R53.83 Other fatigue
CPT/HCPCS: 71046; 99283; A9270-GY

== ENCOUNTER 2019-04-30 01:00 | Inpatient (IN) | payer OTHER ==
[2019-04-30] MEDS ORDERED: NS 0.9% 1000 ML** 2,000 ML IV ONE (01:04)
--- NOTE | 2019-04-30 01:10 | ED ---
Shortness of Breath - HPI Summary HPI Summary: This pt is a 38 Y/O F presenting to [facility] with a CC of SOB that began tonight [employer] and is accompanied by a cough and CP. She states that she has a recent Dx of Influenza since 04/26/2019. She states that her Influenza has not gotten much better and worsened tonight with the new onset of SOB. She states that she has been having N/V with a decreased appetite as well. She states that she has had fevers, chills, and headaches since the onset of symptoms. She states no aggravating or alleviating symptoms. She staes that she has not been smoking since she was Dx with influenza. She has a PMHx of anemia and a SHx of smoking 1 PPD. - History of Current Complaint Chief Complaint: EDShortnessOfBreath Time Seen by Provider: 04/30/19 01:01 Hx Obtained From: Patient Onset/Duration: Sudden Onset, Still Present Timing: Constant Current Severity: Moderate Dyspnea At: Rest Aggravating Factors: Nothing Alleviating Factors: Nothing Associated Signs & Symptoms: Cough (Nonproductive), Wheezing, Fever, Chills - Allergy/Home Medications Allergies/Adverse Reactions: Allergies Allergy/AdvReac Type Severity Reaction Status Date / Time No Known Allergies Allergy Verified 04/26/19 09:36 PMH/Surg Hx/FS Hx/Imm Hx Previously Healthy: Yes Endocrine/Hematology History: Reports: Hx Anemia Denies: Hx Anticoagulant Therapy, Hx Diabetes, Hx Thyroid Disease Cardiovascular History: Denies: Hx Hypertension, Hx Pacemaker/ICD Respiratory History: Denies: Hx Asthma, Hx Chronic Obstructive Pulmonary Disease (COPD) GI History: Denies: Hx Ulcer History: Denies: Hx Renal Disease Musculoskeletal History: Reports: Other Musculoskeletal History - right ankle tib/fib fracture with ORIF Neurological History: Denies: Hx Dementia, Hx Seizures Psychiatric History: Denies: Hx Substance Abuse - Cancer History Hx Chemotherapy: No Hx Radiation Therapy: No - Surgical History Surgical History: Yes Surgery Procedure, Year, and Place: RIGHT ANKLE SURGERY - 2003 - Immunization History Immunizations Up to Date: Yes Infectious Disease History: Denies: Hx Hepatitis, Hx Human Immunodeficiency Virus (HIV) - Family History Known Family History: Negative: Cardiac Disease, Hypertension, Diabetes - Social History Occupation: Employed Full-time Lives: With Family Alcohol Use: Weekly Hx Substance Use: Yes Substance Use Type: Reports: Marijuana Substance Use Comment - Amount & Last Used: "once in a while" Hx Tobacco Use: Yes Smoking Status (MU): Heavy Every Day Tobacco Smoker Type: Cigarettes Amount Used/How Often: 1ppd Review of Systems Positive: Fever, Chills Positive: Chest Pain Positive: Shortness Of Breath, Other - wheezing Positive: Vomiting, Nausea, Other - decreased appetite Positive: Headache All Other Systems Reviewed And Are Negative: Yes Physical Exam - Summary Physical Exam Summary: Constitutional: Well-developed, Well-nourished, Alert. (-) Distressed, Middle aged women with tachypnea Skin: Warm, Dry HENT: Normocephalic; Atraumatic Eyes: Conjunctiva normal Neck: Musculoskeletal ROM normal neck. (-) JVD, (-) Stridor, (-) Tracheal deviation Cardio: Rhythm regular, rate normal, Heart sounds normal; Intact distal pulses; The pedal pulses are 2+ and symmetric. Radial pulses are 2+ and symmetric. (-) Murmur Pulmonary/Chest wall: Tachypnea at 89% O2 stat on room air (-) Respiratory distress, (-) Wheezes, (-) Rales Abd: Soft, (-) tenderness, (-) Distension, (-) Guarding, (-) Rebound Musculoskeletal: (-) Edema Lymph: (-) Cervical adenopathy Neuro: Alert, Oriented x3 Psych: Mood and affect Normal Triage Information Reviewed: Yes Vital Signs On Initial Exam: Temp Pulse Resp BP SpO2 FiO2 98.0 F 129 24 159/120 98 04/30/19 01:05 04/30/19 01:05 04/30/19 01:05 04/30/19 01:05 04/30/19 01:05 Vital Signs Reviewed: Yes Procedures - Sedation Patient Received Moderate/Deep Sedation with Procedure: No Diagnostics - Laboratory Result Diagrams: 04/30/19 01:22 04/30/19 01:28 Lab Statement: Any lab studies that have been ordered have been reviewed, and results considered in the medical decision making process. - Radiology CXR Radiology Interpretation Completed By: ED Physician Summary of Radiographic Findings: bilateral mid-lung field opacity. Pending offical review. - EKG 0107 Cardiac Rate: Tachycardia - 125 BPM EKG Rhythm: Sinus Tachycardia Summary of EKG Findings: EKG taken at 0107 shows Sinus tachycardia at 125 BPM with R atrial enlargement and a probable anterior infarct in leads V2-V5. No STEMI. Interpreted by Dr. Awad 0110 04/30/2019. 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 She also reports wheezing. She states that she has a recent Dx of Influenza since 04/26/2019. She states that her Influenza has not gotten much better and worsened tonight with the new onset of SOB. She states that she has been having N/V with a decreased appetite as well. She states that she has had fevers, chills, and headaches since the onset of symptoms. Her PE shows that she is a Middle aged women with tachypnea, 89% O2 stat on room air. CXR: bilateral mid- lung field opacity. EKG taken at 0107 shows Sinus tachycardia at 125 BPM with R atrial enlargement and a probable anterior infarct in leads V2-V5. No STEMI. She has abnormal labratory values in her WBCs, MCV, MCH, RDW, BUN, and Sodium. She will be admitted by Dr. Zepeda, Hospitalist, for further work-up due to a Dx of PNA and Influenza. - Diagnoses Provider Diagnoses: Influenza, PNA (pneumonia) - Physician Notifications Discussed Care of Patient With: Rashi Zepeda Time Discussed With Above Provider: 02:21 Instructed by Provider To: Admit As Inpatient Admit/Transition Orders Completed By ED Provider: Yes Discharge ED - Sign-Out/Discharge Documenting (check all that apply): Patient Departure - admitted - Discharge Plan Condition: Guarded Disposition: ADMITTED TO [facility] - Billing Disposition and Condition Condition: GUARDED Disposition: Admitted to [facility] - Attestation Statements Document Initiated by Bashire: Yes Documenting Scribe: Lb Rivero Provider For Whom Oneida is Documenting (Include Credential): Hugo Awad MD Scribronnie Attestation: Lb Veliz scribed for Hugo Awad MD on 04/30/19 at 1925. Scribe Documentation Reviewed: Yes Provider Attestation: The documentation as recorded by the Lb bell accurately reflects the service I personally performed and the decisions made by me, Hugo Awad MD Status of Scribe Document: Viewed
[2019-04-30 01:48] LABS: White Blood Count 12.6 10^3/uL (3.5-10.8)
[2019-04-30 01:49] LABS: Hematocrit 31 % (35-47); Hemoglobin 9.8 g/dL (12.0-16.0); Mean Corpuscular HGB Conc 32 g/dL (31-36); Mean Corpuscular Hemoglobin 22 pg (27-31); Mean Corpuscular Volume 70 fL (80-97); Red Cell Distribution Width 26 % (10-15)
[2019-04-30 02:10] LABS: Albumin 3.9 g/dL (3.2-5.2); Calcium 8.6 mg/dL (8.6-10.3); Potassium 3.9 mmol/L (3.5-5.0); Total Bilirubin 0.3 mg/dL (0.2-1.0)
[2019-04-30 02:16] LABS: Albumin/Globulin Ratio 1.1 (1-3); BUN/Creatinine Ratio 4.8 (8-20); EGFR African American 127.3 (>60); EGFR Non-African American 105.2 (>60); Globulin 3.6 g/dL (2-4); Total Protein 7.5 g/dL (6.4-8.9)
[2019-04-30 02:43] LABS: ABS Basophils 0.1 10^3/ul (0-0.2); ABS Lymphocytes 1.7 10^3/ul (1.0-4.8); ABS Monocytes 1.8 10^3/ul (0-0.8); ABS Neutrophils 8.3 10^3/ul (1.5-7.7); Lymphocyte % 14.6 %; Mean Platelet Volume 10.8 fL (7.4-10.4); Nucleated Red Blood Cells % 0.2
[2019-04-30 02:44] LABS: Platelet Count 90 10^3/uL (150-450); Platelet Morphology Large
[2019-04-30 02:45] LABS: Microcytosis 1+
[2019-04-30] MEDS ORDERED: cefTRIAXone(*) 1 GM in NS 0.9% 50 ML* 50 ML IVPB ONE (03:00)
[2019-04-30 03:13] LABS: C Reactive Protein 127.52 mg/L (<8.01)
[2019-04-30] MEDS ORDERED: NS 0.9% 1000 ML** 1,000 ML IV SCH (03:30)
[2019-04-30] MEDS ORDERED: Azithromycin 500 mg/250 mL NS IVPB ONE (03:30)
[2019-04-30] MEDS: Oseltamivir CAP* 75 MG CAP PO SCH ×2 (08:24→20:08)
[2019-04-30] MEDS ORDERED: Lorazepam PYXIS KEY PRN (08:28)
[2019-04-30] MEDS ORDERED: Benzonatate CAP* 100 MG PO SCH (09:00)
[2019-04-30 09:19] LABS: % Iron Saturation 8 % (15-55); Iron 25 ug/dL (50-212); Total Iron Binding Capacity 333 mcg/dL (250-450); Transferrin 238 mg/dL (203-362)
[2019-04-30 09:37] LABS: Ferritin 25.2 ng/mL (11-307)
[2019-04-30] MEDS: LORazepam INJ* 2 MG/ML 1 ML VIAL IV PUSH PRN ×3 (09:51→23:10)
--- NOTE | 2019-04-30 10:35 | HP ---
HISTORY AND PHYSICAL: DATE OF ADMISSION: 04/30/19 ADMITTING PROVIDER: Rashi Zepeda MD. PRIMARY CARE PROVIDER: Christian Shelby NP. CHIEF COMPLAINT: Shortness of breath, dyspnea on exertion, coughing, subjective fevers. HISTORY OF PRESENT ILLNESS: Isaiah Cervantes is a 38-year-old female with no chronic past medical history, though did have a E. coli pyelonephritis with some mild DIC during previous admission and some anemia with heavy periods, for which she is supposed to be taking iron but has been noncompliant. Four days prior to admission on , 04/26/19, she developed some shortness of breath , subjective fevers, body aches, denied any headaches, no sick contacts, had some nausea but no vomiting. She was diagnosed with influenza B at the emergency room, started on Tamiflu. She was tachycardic to 111 during that visit. She returns today with progressive symptoms of dyspnea on exertion. She could barely take a few steps without getting very short of breath. She had chest pain that radiated from her chest into her back that was 8/10 in intensity and was taking Aleve and ibuprofen. She has continued to have subjective fevers. She presented to the [facility] Emergency Room, was found to be satting 89% on room air with labored breathing and tachypneic to as high as 32 with a heart rate of 129, and she had leukocytosis of 12.6 and a chest x-ray concerning for potential bilateral infiltrates and a question of whether or not some of her bra material may be radiopaque given comparison of the lateral views between 04/26/19 x-ray and today's x-ray, we do not see a clear infiltrate on the lateral view and clearly some radiopaque material in the bra itself. She was referred to hospitalist service for hypoxic respiratory failure with suspicion for inability to rule out post influenza pneumonia. D- dimer was added and that was less than 200. PAST MEDICAL HISTORY: E. coli pyelonephritis with mild DIC a few years ago, iron deficiency anemia. MEDICATIONS: Recent Tamiflu, otherwise she is supposed to be taking ferrous gluconate 325 mg p.o. daily but has not been. ALLERGIES: No known drug allergies. FAMILY HISTORY: Her father of "a respiratory disease" that starts with an S that he picked up flying airplanes in the [place], specifically denies previous documentation that he had a cancer. Mother is alive with a history of AFib. SOCIAL HISTORY: The patient is a current smoker she says for about 10 years, 1 pack per day. She works at [employer]. She lives with her . She smokes marijuana occasionally and denies other drug use. REVIEW OF SYSTEMS: A complete 14-point review of systems is negative except as per HPI. No abdominal pain, rashes, sick contacts. No headaches. She does not exercise. PHYSICAL EXAMINATION GENERAL APPEARANCE: No acute distress. VITAL SIGNS: Temperature 98.0; pulse rate 129; respiratory rate 24 to 32; initially satting 89% reportedly on room air, improved to 97% on 4 L; blood pressure 159/120. HEENT: Normocephalic, atraumatic. Pupils equal, round, reactive to light. Extraocular movements intact. No scleral icterus. LUNGS: With rhonchi bilaterally. No wheezing or rales. CARDIOVASCULAR: Tachycardic, regular. No murmurs, rubs, or gallops. ABDOMEN: Soft, nontender, nondistended. EXTREMITIES: Warm, well perfused. No peripheral edema. NEURO: Cranial nerves II through XII intact. Moving all extremities. Alert and oriented x3. SKIN: No lesions or rashes. DIAGNOSTIC STUDIES/LAB DATA: White count 12.6, hemoglobin 9.8, hematocrit 31, platelets 90. D-dimer less than 200. Sodium 134, potassium 3.9, chloride 100, carbon dioxide 27, BUN 3, creatinine 0.63, glucose 125, lactic acid 1.1, calcium 8.6. Total bili 0.3, AST 36, ALT 21, alk phos 71. Troponin 0.00. CRP 127. BNP 171. Imaging: Chest x-ray, formal read pending. I cannot exclude bilateral infiltrates but also some concern that some of the difference between the x- rays from 4 days apart with some radiopaque material in her bra based on the lack of clear infiltrate on the lateral view. EKG demonstrated Q waves in V1 through V3, heart rate 125, no ST elevations or depressions. ASSESSMENT AND PLAN: 1. Isaiah Cervantes is a 38-year-old female with no significant past medical history other than iron deficiency anemia, diagnosed with influenza B 4 days prior to admission, presenting with progressive dyspnea on exertion that has been quite debilitating for her. I cannot exclude bilateral post influenza pneumonia based on the imaging we have. I am starting her on ceftriaxone and azithromycin, follow up blood culture, sputum culture, Streptococcus pneumoniae and legionella urine antigens. Supplemental oxygen as needed. Continue the last 3 doses of the Tamiflu and supportive care otherwise. She is status post 2 L sepsis bolus in the emergency room. I am going to give her 100 cc an hour for the next 10 hours as well given her continued tachycardia. Need to rule out pulmonary embolism given her smoking history and tachycardia and hypoxia, but the D-dimer has returned less than 200. She denies any leg swelling or pain and describes the symptoms as relatively progressive rather than acute. 2. FEN: She can eat a regular diet, fluids as above. 3. She is a full code. Medical surrogate is her mother Antonina Love, I believe (not 100% sure about the last name). [id number]/CPS #: [id number] MTDD
[2019-04-30] MEDS ORDERED: Enoxaparin(*) 40 MG/0.4 ML SYR SUBCUT SCH ×2 (11:00→14:00)
[2019-04-30] MEDS: Morphine INJ* 2 MG/ML 1 ML SYRINGE (TWO MG - NEW SYRINGE VERSION) IV PRN ×2 (11:45→20:08)
--- NOTE | 2019-04-30 13:06 | ECHO ---
*[facility]* [place] [address] Fax #: [phone] Transthoracic Echocardiogram Patient: Isaiah Cervantes : 1980 Study Date: 04/30/2019 Age: 38 Gender: F HR: 122 bpm Height: 67 in /170.2 cm BSA: 1.92 m^2 Weight: 169.6 lb /77.1 kg BMI: 26.6 kg/m^2 *Tank Filler: * Reny De [facility] *Referring Physician: * Rashi Zepeda *Reading Physician: * Kasi Hollins MD Indications: SOB. History: Flu and pneumonia. Risk factors: Current tobacco use. Conclusions Summary: - Left ventricle: Systolic function is hyperdynamic. The estimated ejection fraction is 70-75%. Wall motion is normal; there are no regional wall motion abnormalities. - Mitral valve: There is no significant regurgitation. - Aortic valve: The valve is probably trileaflet. The leaflets are normal thickness. There is no evidence of stenosis. - Tricuspid valve: There is no significant regurgitation. - Pericardium, extracardiac: There is no significant pericardial effusion. - Compared to study of 09/22/14, the is no change. Study data: Transthoracic echocardiogram. Procedure: Transthoracic echocardiography was performed. Image quality was fair. The study was technically limited due to poor acoustic window availability. Complete 2D, spectral Doppler, and color flow Doppler. Location: ICU Patient status: Inpatient. Patient room number: 4. Rhythm: Tachycardia. Findings Left ventricle: The cavity size is mildly reduced. There is focal basal hypertrophy. Systolic function is hyperdynamic. The estimated ejection fraction is 70-75%. Wall motion is normal; there are no regional wall motion abnormalities. There is no consistent Doppler evidence of clinically significant diastolic dysfunction. Right ventricle: The cavity size is normal. Systolic function is hyperdynamic. Left atrium: The atrium is normal in size. Right atrium: Not well visualized. The atrium is normal in size. Mitral valve: The leaflets are mildly thickened. There is no evidence of stenosis. There is no significant regurgitation. Aortic valve: The valve is probably trileaflet. The leaflets are normal thickness. There is no evidence of stenosis. There is no significant regurgitation. Tricuspid valve: The leaflets are normal thickness. There is no evidence of stenosis. There is no significant regurgitation. Pulmonic valve: Not well visualized. There is no significant regurgitation. Pericardium: There is no significant pericardial effusion. Pulmonary arteries: Systolic pressure can not be accurately estimated. Systemic veins: Inferior vena cava: The vessel is normal in size. There is (>= 50%) respiratory change in the IVC dimension. Measurements Left ventricle Value Ref Aortic valve Value Ref STELLA, LAX (L) 3.4 cm 3.8 - 5.2 Alison diam, ED 2.0 cm ---- ESD, LAX (L) 1.6 cm 2.2 - 3.5 Alison diam/bsa, ED 1.0 cm/m^2 ---- FS, LAX (H) 52 % 27 - 45 Peak v, S 1.09 m/sec ---- PW, ED, LAX 0.9 cm 0.6 - 0.9 VTI, S 19.0 cm ---- E', lat alison, TDI 10.0 cm/sec >=10.0 Mean grad, S 3.2 mm Hg ---- E/e', lat alison, 6 Peak grad, S 4.8 mm Hg -- -- TDI E', med alison, TDI 7.0 cm/sec >=7.0 Mitral valve Value Ref E/e', med alison, 9 Peak E 0.6 m/sec -- -- TDI Peak A 1 m/sec ---- E', avg, TDI 8.5 cm/sec VTI leaflet coapt 15.8 cm -- -- E/e', avg, TDI 7 <=14 Decel time 112 ms ---- PHT 46 ms ---- LVOT Value Ref Mean grad, D 3.1 mm Hg ---- Peak bryson, S 1.13 m/sec Peak grad, D 4.0 mm Hg ---- VTI, S 20.8 cm Peak E/A ratio 0.6 ---- Peak grad, S 5 mm Hg MVA, PHT 4.8 cm^2 ---- Mean grad, S 3 mm Hg Pulmonic valve Value Ref Ventricular septum Value Ref Peak v, S 1.34 m/sec ---- IVS, ED (H) 1.1 cm 0.6 - 0.9 Peak grad, S 7.2 mm Hg ---- Right ventricle Value Ref Aortic root Value Ref STELLA, LAX 2.8 cm Root diam 2.6 cm <3.6 Left atrium Value Ref Ascending aorta Value Ref AP dim, ES 2.73 cm 2.70 - AAo AP diam, S 3.0 cm ---- 3.80 AAo AP diam/bsa, S 1.5 cm/m^2 ---- ML dim, A4C 2.8 cm SI dim, A4C 4.0 cm Inferior vena cava Value Ref Vol, ES, 2-p 23 ml Diam 2.0 cm ---- Vol/bsa, ES, 2-p (L) 12 ml/m^2 16 - 34 Right atrium Value Ref SI dim, ES 3.7 cm 3.4 - 5.3 SI dim/bsa, ES, 1.9 cm/m^2 1.9 - 3.1 A4C Estimated RAP 8 mm Hg Legend: (L) and (H) jessica values outside specified reference range. Prepared and electronically signed by Kasi Hollins MD 04/30/2019 13:06
[2019-04-30] MEDS: Benzonatate CAP* 100 MG PO PRN ×2 (16:05→22:56)
--- NOTE | 2019-04-30 16:39 | PN ---
Date of Service: 04/30/19 Critical Care Services: Patient admitted early this AM with community acquired pneumonia, most likely influenza, with bilateral infiltrates and hypoxemic respiratory failure. Requires high-flow, humidified, nasal O2 (Vapotherm) to keep SpO2 above 90%. Rx involves Tamiflu, ceftriaxone and azithromycin. Vital Signs: Temp Pulse Resp BP SpO2 FiO2 100.4 F 121 42 130/78 97 35 Physical Exam: Gen:Anxious and tachypneic HEENT:Oropharynx clear Lungs:No adventitious sounds Cardiac: Reg rhythm Abdomen:Not distended Extremities:No cyanosis or edema Fluid Balance (Past 24 Hours): 04/30/19 05/01/19 06:59 06:59 Intake Total 626 Output Total 1425 Balance -799 Weight 170 lb 119 lb 14.903 oz Intake: IV Fluids 576 NS (0.9%) 576 Oral 50 Output: Urine 1425 Other: Estimated Void Medium Date of Last Bowel 04/30/2019 Movement # Bowel Movements 1 Estimated Stool Amount Small # Voids 1 Labs: Laboratory Results - last 24 hr 04/30/19 04/30/19 04/30/19 01:22 01:28 01:28 WBC 12.6 H RBC 4.40 Hgb 9.8 L Hct 31 L MCV 70 L MCH 22 L MCHC 32 RDW 26 H Plt Count 90 L MPV 10.8 H Neut % (Auto) 69.3 Lymph % (Auto) 14.6 [place] % (Auto) 15.1 Eos % (Auto) 0.0 Baso % (Auto) 1.0 Absolute Neuts (auto) 8.3 H Absolute Lymphs (auto) 1.7 Absolute Monos (auto) 1.8 H Absolute Eos (auto) 0.0 Absolute Basos (auto) 0.1 Absolute Nucleated RBC 0.0 Nucleated RBC % 0.2 Platelet Morphology Large Anisocytosis 2+ Microcytosis 1+ D-Dimer, Quantitative ABG pH ABG pCO2 ABG pO2 ABG HCO3 ABG O2 Saturation ABG Base Excess Sodium 134 L Potassium 3.9 Chloride 100 L Carbon Dioxide 27 Anion Gap 7 BUN 3 L Creatinine 0.63 Est GFR ( Amer) 127.3 Est GFR (Non-Af Amer) 105.2 BUN/Creatinine Ratio 4.8 L Glucose 125 H Lactic Acid 1.1 Calcium 8.6 Iron Cancelled TIBC Cancelled % Saturation Cancelled Unsat Iron Binding Cancelled Transferrin Cancelled Ferritin Cancelled Total Bilirubin 0.30 AST 36 ALT 21 Alkaline Phosphatase 71 Troponin I 0.00 C-Reactive Protein 127.52 H B-Natriuretic Peptide Total Protein 7.5 Albumin 3.9 Globulin 3.6 Albumin/Globulin Ratio 1.1 04/30/19 04/30/19 04/30/19 01:28 01:28 07:45 WBC RBC Hgb Hct MCV MCH MCHC RDW Plt Count MPV Neut % (Auto) Lymph % (Auto) [place] % (Auto) Eos % (Auto) Baso % (Auto) Absolute Neuts (auto) Absolute Lymphs (auto) Absolute Monos (auto) Absolute Eos (auto) Absolute Basos (auto) Absolute Nucleated RBC Nucleated RBC % Platelet Morphology Anisocytosis Microcytosis D-Dimer, Quantitative < 200 ABG pH 7.46 H ABG pCO2 37 ABG pO2 92 ABG HCO3 26.9 ABG O2 Saturation 99.9 H ABG Base Excess 2.5 H Sodium Potassium Chloride Carbon Dioxide Anion Gap BUN Creatinine Est GFR ( Amer) Est GFR (Non-Af Amer) BUN/Creatinine Ratio Glucose Lactic Acid Calcium Iron TIBC % Saturation Unsat Iron Binding Transferrin Ferritin Total Bilirubin AST ALT Alkaline Phosphatase Troponin I C-Reactive Protein B-Natriuretic Peptide 171 H Total Protein Albumin Globulin Albumin/Globulin Ratio 04/30/19 08:31 WBC RBC Hgb Hct MCV MCH MCHC RDW Plt Count MPV Neut % (Auto) Lymph % (Auto) [place] % (Auto) Eos % (Auto) Baso % (Auto) Absolute Neuts (auto) Absolute Lymphs (auto) Absolute Monos (auto) Absolute Eos (auto) Absolute Basos (auto) Absolute Nucleated RBC Nucleated RBC % Platelet Morphology Anisocytosis Microcytosis D-Dimer, Quantitative ABG pH ABG pCO2 ABG pO2 ABG HCO3 ABG O2 Saturation ABG Base Excess Sodium Potassium Chloride Carbon Dioxide Anion Gap BUN Creatinine Est GFR ( Amer) Est GFR (Non-Af Amer) BUN/Creatinine Ratio Glucose Lactic Acid Calcium Iron 25 L TIBC 333 % Saturation 8 L Unsat Iron Binding < 318 Transferrin 238 Ferritin 25.2 Total Bilirubin AST ALT Alkaline Phosphatase Troponin I C-Reactive Protein B-Natriuretic Peptide Total Protein Albumin Globulin Albumin/Globulin Ratio Studies: Urine negative for Legionella and Pneumococcal antigens. Nutrition: Oral diet Impression: Viral pneumonia with acute hypoxemic respiratory failure. Patient does not need mechanical ventilation at this time. Plan: 1. Continue triple antimicrobial Rx. 2. Opiates for dyspnea 3. Lorazepam for anxiety 4. Await sputum and blood cultures. Patient's and mother present at bedside and aware of Dx. Critical Care Time: 50 minutes
[2019-05-01] MEDS: Morphine INJ* 2 MG/ML 1 ML SYRINGE (TWO MG - NEW SYRINGE VERSION) IV PRN ×3 (02:10→21:42)
[2019-05-01] MEDS: cefTRIAXone(*) 1 GM in NS 0.9% 50 ML* 50 ML IVPB SCH (02:51)
[2019-05-01] MEDS: Azithromycin 500 mg/250 ml NS 500 MG/250 ML BAG IVPB SCH (04:05)
[2019-05-01] MEDS: Acetaminophen TAB* 325 MG PO PRN ×2 (04:51→11:59)
[2019-05-01 05:00] LABS: Hematocrit 28 % (35-47); Hemoglobin 8.6 g/dL (12.0-16.0); Mean Corpuscular HGB Conc 31 g/dL (31-36); Mean Corpuscular Hemoglobin 22 pg (27-31); Mean Corpuscular Volume 73 fL (80-97); Red Blood Count 3.88 10^6 /uL (3.70-4.87); Red Cell Distribution Width 26 % (10-15); White Blood Count 6.4 10^3/uL (3.5-10.8)
[2019-05-01 05:12] LABS: Anion Gap 6 mmol/L (2-11); CO2 Carbon Dioxide 24 mmol/L (22-32); Calcium 8.1 mg/dL (8.6-10.3); Chloride 106 mmol/L (101-111); Potassium 3.7 mmol/L (3.5-5.0); Sodium 136 mmol/L (135-145)
[2019-05-01 05:17] LABS: BUN/Creatinine Ratio 7.7 (8-20); Blood Urea Nitrogen 3 mg/dL (6-24); EGFR African American 221.4 (>60); Glucose 110 mg/dL (70-100)
[2019-05-01 06:23] LABS: ABS Lymphocytes 1.9 10^3/ul (1.0-4.8); ABS Monocytes 1.2 10^3/ul (0-0.8); ABS Neutrophils 3.3 10^3/ul (1.5-7.7); Eosinophil % 0.1 %; Lymphocyte % 28.9 %; Mean Platelet Volume 10.2 fL (7.4-10.4); Microcytosis 1+; Nucleated Red Blood Cells % 0.1; Platelet Count 35 10^3/uL (150-450)
[2019-05-01] MEDS ORDERED: Ondansetron INJ* 2 MG/ML VIAL IV PRN (07:48)
[2019-05-01] MEDS: Lactated Ringers 1000 ML Bag* 1,000 ML IV SCH ×2 (08:26→15:16)
[2019-05-01] MEDS: Oseltamivir CAP* 75 MG CAP PO SCH ×2 (09:20→21:42)
--- NOTE | 2019-05-01 10:59 | PN ---
Date of Service: 05/01/19 Critical Care Services: Remains on the high-flow, humidified O2 system (Vapotherm) at 30 L/min with FIO2 of 30%, and SpO2s have been in the high 90s. Is anxious and tachypneic, but not worse than on admission. Vital Signs: Temp Pulse Resp BP SpO2 FiO2 98.8 F 88 25 117/82 98 30 Physical Exam: Gen:Somnolent but arousable HEENT:Oropharynx clear. Nasal prongs in place. Lungs: No adventitious sounds Cardiac: Reg rhythm with rapid rate Abdomen: Not distended Extremities: No cyanosis or edema. No rashes Fluid Balance (Past 24 Hours): 05/01/19 05/02/19 06:59 06:59 Intake Total 2504 0 Output Total 1425 700 Balance 1079 -700 Weight 120 lb Intake: IV Fluids 1988 NS (0.9%) 991 IVPB 340 ABX 340 Oral 175 0 Output: Urine 1425 400 Liquid Stool 100 Emesis 200 Other: Estimated Void Large Date of Last Bowel 04/30/2019 Movement # Bowel Movements 1 Estimated Stool Amount Small # Voids 1 Labs: 05/01/19 05/01/19 04:50 04:50 WBC 6.4 RBC 3.88 Hgb 8.6 L Hct 28 L MCV 73 L MCH 22 L MCHC 31 RDW 26 H Plt Count 35 L D MPV 10.2 Neut % (Auto) 52.3 Lymph % (Auto) 28.9 [place] % (Auto) 18.2 Eos % (Auto) 0.1 Baso % (Auto) 0.5 Absolute Neuts (auto) 3.3 Absolute Lymphs (auto) 1.9 Absolute Monos (auto) 1.2 H Absolute Eos (auto) 0.0 Absolute Basos (auto) 0.0 Absolute Nucleated RBC 0.0 Neutrophils % 56.0 Lymphocytes % 37.0 Reactive Lymphs % 1.0 Monocytes % 6.0 Nucleated RBC % 0.1 Nucleated RBCs/100 WBC 2.0 H Normal RBC Morphology Not Reportable Anisocytosis 1+ Microcytosis 1+ Elliptocytes 1+ Hem Pathologist Commnt Sodium 136 Potassium 3.7 Chloride 106 Carbon Dioxide 24 Anion Gap 6 BUN 3 L Creatinine 0.39 L Est GFR ( Amer) 221.4 Est GFR (Non-Af Amer) 183.0 BUN/Creatinine Ratio 7.7 L Glucose 110 H Calcium 8.1 L Studies: CXR: Bibasilar infiltrates Sputum gram stain: multiple morphologies Nutrition: Oral diet - intake poor Impression: 1. Severe bilateral pneumonia, most likely influenza (because of positive flu test 2 days prior to admission.) There has been no clinical deterioration since admission. 2. Thrombocytopenia in this setting reflects severity of illness. 3. Microcytic anemia with low-normal ferritin level. Could be partly "anemia of inflammation" and partly iron-deficiency anemia. Plan: 1. Monitor carefully for signs that mechanical ventilation is needed. 2. Continue Rx with Tamiflu, ceftriaxone and azithromycin. 3. ID consult sent 4. Avoid a positive fluid balance, if possible. Spoke with mother this AM and updated her on patient's clinical status. Critical Care Time: 40 minutes
[2019-05-01 16:52] LABS: HCG Pregnancy < 0.60 mIU/mL
--- NOTE | 2019-05-01 18:23 | CONS ---
CONSULTATION REPORT: DATE OF CONSULT: 05/01/19 REQUESTING PHYSICIAN: Dr. Ilia Ring. CONSULTING SERVICE: Infectious Disease. REASON FOR CONSULT: Influenza with acute hypoxemic respiratory failure. IMPRESSION: 1. Influenza with pneumonia, which is probably due to influenza, but could be secondary infection. Blood cultures are negative so far. The pneumococcal and legionella antigens are negative. A Gram stain from the sputum shows 4+ epithelials, gram-positive bacilli, gram-negative bacilli, gram-positive cocci, and yeast. This is probably oral erin. Her oxygen requirements and symptoms are improving, so I think she is adequately covered if there is a secondary bacterial process. 2. Thrombocytopenia due to sepsis. 3. Acute hypoxemic respiratory failure, on supplemental oxygen, decreasing oxygen requirements down to FiO2 of 0.3 from 0.4 overnight and a flow rate of 40 L a minute. RECOMMENDATIONS: 1. Continue Tamiflu and ceftriaxone with azithromycin. As long as she continues to improve, we will hold on vancomycin, but that would be the next step if any worsening. 2. HIV antibody. 3. HCG in the blood for test. HISTORY OF PRESENT ILLNESS: This is a 38-year-old woman who was healthy until the weekend when she developed some ache and cough. Then, because of shortness of breath, fevers, she was seen in the ER on 04/26/19, tested positive for influenza B and was started on Tamiflu as an outpatient, which she had taken, but had persistence of achiness, fevers, cough, some sore throat, and then more severe shortness of breath that kept waking her up at night, left her gasping for air. She came to the hospital on morning of 04/30/19 and a chest x-ray showed bibasilar infiltrates. She was started on ceftriaxone, azithromycin. She had increasing oxygen requirement, so was moved to the intensive care unit, is on oxygen 40 L a minute, FiO2 of 0.3 down from 0.4. She had had some left- sided chest and back pain, which has resolved. Her breathing feels little more comfortable and she thinks she is starting to make improvement as does her . Her chest x-ray showed some progression of infiltrate. She has had thrombocytopenia here, which was not present on a CBC in our system done over the summer, but was profound during her hospitalization in 2014 for pyelonephritis. This summer, she did look to have underlying microcytic anemia and history of heavy menses. PAST MEDICAL HISTORY: Urinary tract infection, pyelonephritis in 2015, microcytic anemia. MEDICATIONS: 1. Tylenol. 2. Azithromycin 500 mg IV daily. 3. Ativan as needed. 4. Zofran as needed. 5. Ceftriaxone 1 g daily. ALLERGIES: No known drug allergies. FAMILY HISTORY: Father from respiratory illness. Mother is alive and has atrial fibrillation. SOCIAL HISTORY: She does smoke cigarettes. Lives with her . 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 Does smoke marijuana occasionally. REVIEW OF SYSTEMS: All negative except as noted above to a 14-point review of systems. PHYSICAL EXAM: Vital Signs: Temperature is 37.1, heart rate 90, respiratory rate 29, blood pressure 129/93, oxygen saturation 100% with oxygen FiO2 of 0.3 at 40 L a minute. In general, she is awake, not in distress. Neurologic: She is oriented x3. Follows all commands. Moves all her extremities. HEENT: There is no conjunctival hemorrhage. Oropharynx without lesions. Neck is supple without mass. Lymph Nodes: There is no cervical, supraclavicular, inguinal, axillary, or epitrochlear lymphadenopathy. Heart is regular and tachycardic without murmurs. Respiratory: She has shallow breathing. There are no wheezes or rales. There is egophony at the right base. Abdomen is soft , nontender, nondistended. There are bowel sounds present. Skin: There is no rash or splinter hemorrhage. Musculoskeletal: There is no spine tenderness to palpation or joint synovitis. LABORATORY DATA: White blood cell count 6, hemoglobin 8.6, MCV 73, platelets 35. D-dimer was less than 200. Creatinine 0.3, glucose 110. CRP 127 on admission. Please see impression and recommendations outlined above, which I have discussed with Dr. Ring. Thanks for asking me to see Ms. PembertonBilly in consultation. [id number]/[facility] #: [id number] TRAVIS
[2019-05-01 18:57] LABS: HIV 4th Generation Nonreactive (Nonreactive)
[2019-05-01] MEDS: Benzonatate CAP* 100 MG PO PRN (21:42)
[2019-05-01] MEDS: LORazepam INJ* 2 MG/ML 1 ML VIAL IV PUSH PRN (23:07)
[2019-05-02] MEDS: cefTRIAXone(*) 1 GM in NS 0.9% 50 ML* 50 ML IVPB SCH (03:35)
[2019-05-02] MEDS: Azithromycin 500 mg/250 ml NS 500 MG/250 ML BAG IVPB SCH (04:20)
[2019-05-02] MEDS: Acetaminophen TAB* 325 MG PO PRN ×3 (04:20→21:56)
[2019-05-02 04:40] LABS: BUN/Creatinine Ratio 4.5 (8-20); Calcium 7.5 mg/dL (8.6-10.3); EGFR African American 192.6 (>60); EGFR Non-African American 159.2 (>60); Potassium 3.3 mmol/L (3.5-5.0)
[2019-05-02 04:52] LABS: Hematocrit 24 % (35-47); Hemoglobin 7.7 g/dL (12.0-16.0); Mean Corpuscular HGB Conc 32 g/dL (31-36); Mean Corpuscular Hemoglobin 23 pg (27-31); Mean Corpuscular Volume 71 fL (80-97); Red Cell Distribution Width 26 % (10-15); White Blood Count 5.5 10^3/uL (3.5-10.8)
[2019-05-02] MEDS ORDERED: Potassium Chloride* LIQUID 20 MEQ/15 ML UDC PO ONE (05:38)
[2019-05-02] MEDS: Lactated Ringers 1000 ML Bag* 1,000 ML IV SCH ×2 (05:39→11:03)
[2019-05-02 06:03] LABS: Mean Platelet Volume 9.5 fL (7.4-10.4); Platelet Count 25 10^3/uL (150-450)
[2019-05-02 06:10] LABS: Microcytosis 1+
[2019-05-02 06:11] LABS: ABS Lymphocytes 1.9 10^3/ul (1.0-4.8); ABS Neutrophils 2.6 10^3/ul (1.5-7.7); Eosinophil % 0.8 %; Lymphocyte % 33.5 %
[2019-05-02] MEDS: Oseltamivir CAP* 75 MG CAP PO SCH ×2 (08:53→19:56)
--- NOTE | 2019-05-02 09:22 | PN ---
Progress Note - Progress Note Date of Service: 05/02/19 SOAP: Subjective: CC: Influenza with acute hypoxic respiratory failure HPI: Ms. Cervantes is a 38 yo female with PMH significant for microcytic anemia ; who presented to the emergency room with complaints of shortness of breath in the setting of recent influenza dx. She was admitted for PNA and hypoxic respiratory failure in the setting of recent influenza dx. Denies fever, chills , nausea, vomiting, or diarrhea. She continues to have shortness of breath, but states that this has started to improve and intermittent cough with some mucous production. Objective: Vital Signs 05/02/19 09:00 Temperature Pulse Rate 82 Respiratory 24 Rate Blood Pressure 134/97 (mmHg) O2 Sat by Pulse 92 Oximetry Physical Exam: General: NAD, sitting up in bed Neurological: Alert and Oriented x3 HEENT: Moist MM Cardiovascular: Heart rate regular Respiratory: Lung sounds with scattered exp wheeze Abdominal: Bowel sounds present; ABD soft, non tender and non distended MSK: MCPHERSON Skin: No rash Laboratory Results - last 24 hr 05/01/19 05/01/19 05/02/19 04:50 16:40 04:16 Sodium 136 142 Potassium 3.7 3.3 L Chloride 106 107 Carbon Dioxide 24 24 Anion Gap 6 11 BUN 3 L 2 L Creatinine 0.39 L 0.44 L Est GFR ( Amer) 221.4 192.6 Est GFR (Non-Af Amer) 183.0 159.2 BUN/Creatinine Ratio 7.7 L 4.5 L Glucose 110 H 103 H Calcium 8.1 L 7.5 L Beta HCG, Quant < 0.60 HIV 1&2 Ab/P24 Ag 4thGn Nonreactive 05/02/19 04:16 WBC 5.5 RBC 3.40 L Hgb 7.7 L Hct 24 L MCV 71 L MCH 23 L MCHC 32 RDW 26 H Plt Count 25 L MPV 9.5 Neut % (Auto) 46.3 Lymph % (Auto) 33.5 Lynn % (Auto) 18.7 Eos % (Auto) 0.8 Baso % (Auto) 0.7 Absolute Neuts (auto) 2.6 Absolute Lymphs (auto) 1.9 Absolute Monos (auto) 1.0 H Absolute Eos (auto) 0.0 Absolute Basos (auto) 0.0 Absolute Nucleated RBC 0.0 Neutrophils % 51.0 Lymphocytes % 39.0 Reactive Lymphs % 2.0 Monocytes % 8.0 Nucleated RBC % 0.0 Platelet Morphology Giant Normal RBC Morphology Not Reportable Anisocytosis 1+ Microcytosis 1+ Target Cells 1+ Elliptocytes 1+ Microbiology 04/30/19 01:29 Aerobic Blood Culture - Preliminary Blood Venous No Growth Day 2 Anaerobic Blood Culture - Preliminary No Growth Day 2 04/30/19 01:29 Aerobic Blood Culture - Preliminary Blood Venous No Growth Day 2 Anaerobic Blood Culture - Preliminary No Growth Day 2 04/30/19 16:01 Gram Stain - Final Sputum Expectorated 04/30/19 08:10 Nasal Screen MRSA (PCR) - Final Nasal Mrsa Not Detected 04/30/19 09:15 Legionella Urinary Antigen - Final Urine Negative Legionella Antigen Streptococcus pneumoniae Ag Screen - Final Negative S. pneumo Antigen Assessment: 1. Influenza B with PNA. Suspect PNA is secondary to Influenza, but may represent a secondary infection. Chest xray with bibasilar infiltrates. Urine antigens negative for legionella and S. pneumo. Blood cultures with no growth to day. Sputum gram stain with 4+ epithelial cells, 3+ neutrophils, 4+ gram positive bacilli, 4+ gram negative bacilli, 4+ gram positive cocci, and 2+ yeast ; suspect this is oral erin. HIV testing negative. Afebrile and no leukocytosis. 2. Thrombocytopenia. Secondary to sepsis. 3. Acute hypoxic respiratory failure. Has been weaned from hi flow O2 down to L via NC. Plan: Continue Tamiflu, Ceftriaxone and Azithromycin.
--- NOTE | 2019-05-02 09:54 | PN ---
Date of Service: 05/02/19 Critical Care Services: Oxygenation much better today - On nasal O2 at 3 L/min, and SpO2s in the high 90s. No complaint of SOB Vital Signs: Temp Pulse Resp BP SpO2 FiO2 97.5 F 82 24 134/97 92 30 Physical Exam: Gen:Alert, oriented, comfortable HEENT:Oropharynx clear Lungs: Occasional crackles both bases. No wheezes or rhonchi. Cardiac: Reg rhythm Abdomen:Not distended Extremities:No cyanosis or edema Fluid Balance (Past 24 Hours): 05/01/19 05/02/19 06:59 06:59 Intake Total 2504 2684.6 Output Total 1425 2600 Balance 1079 84.6 Weight 120 lb 2.431 oz 122 lb 9 oz Intake: IV Fluids 1988 2339.6 ABX 347 LR 1880 NS (0.9%) 991 112.6 IVPB 340 ABX 340 Oral 175 345 Output: Urine 1425 2300 Liquid Stool 100 Emesis 200 Other: Estimated Void Large Large Date of Last Bowel 04/30/2019 Movement # Bowel Movements 1 Estimated Stool Amount Small Small # Voids 1 Labs: 05/01/19 05/01/19 05/02/19 04:50 16:40 04:16 WBC RBC Hgb Hct MCV MCH MCHC RDW Plt Count MPV Neut % (Auto) Lymph % (Auto) [place] % (Auto) Eos % (Auto) Baso % (Auto) Absolute Neuts (auto) Absolute Lymphs (auto) Absolute Monos (auto) Absolute Eos (auto) Absolute Basos (auto) Absolute Nucleated RBC Neutrophils % Lymphocytes % Reactive Lymphs % Monocytes % Nucleated RBC % Platelet Morphology Normal RBC Morphology Anisocytosis Microcytosis Target Cells Elliptocytes Sodium 136 142 Potassium 3.7 3.3 L Chloride 106 107 Carbon Dioxide 24 24 Anion Gap 6 11 BUN 3 L 2 L Creatinine 0.39 L 0.44 L Est GFR ( Amer) 221.4 192.6 Est GFR (Non-Af Amer) 183.0 159.2 BUN/Creatinine Ratio 7.7 L 4.5 L Glucose 110 H 103 H Calcium 8.1 L 7.5 L Beta HCG, Quant < 0.60 HIV 1&2 Ab/P24 Ag 4thGn Nonreactive 05/02/19 04:16 WBC 5.5 RBC 3.40 L Hgb 7.7 L Hct 24 L MCV 71 L MCH 23 L MCHC 32 RDW 26 H Plt Count 25 L MPV 9.5 Neut % (Auto) 46.3 Lymph % (Auto) 33.5 [place] % (Auto) 18.7 Eos % (Auto) 0.8 Baso % (Auto) 0.7 Absolute Neuts (auto) 2.6 Absolute Lymphs (auto) 1.9 Absolute Monos (auto) 1.0 H Absolute Eos (auto) 0.0 Absolute Basos (auto) 0.0 Absolute Nucleated RBC 0.0 Neutrophils % 51.0 Lymphocytes % 39.0 Reactive Lymphs % 2.0 Monocytes % 8.0 Nucleated RBC % 0.0 Platelet Morphology Giant Normal RBC Morphology Not Reportable Anisocytosis 1+ Microcytosis 1+ Target Cells 1+ Elliptocytes 1+ Sodium Potassium Chloride Carbon Dioxide Anion Gap BUN Creatinine Est GFR ( Amer) Est GFR (Non-Af Amer) BUN/Creatinine Ratio Glucose Calcium Beta HCG, Quant HIV 1&2 Ab/P24 Ag 4thGn Studies: None today Nutrition: Oral diet Impression: Working Dx is influenza pneumonia. Patient continues to show clinical improvement, and no longer requires high-flow nasal O2. She also has thrombocytopenia (presumably from the infection) and a microcytic anemia (with a low normal ferritin), which could be a combination "anemia of inflammation" on top of an iron-deficiency anemia. Plan: 1. D/C azithromycin and ceftriaxone if all cultures negative. 2. Monitor platelets and Hb - I would not start iron now because of its pro- inflammatory effects. 3. Transfer out of ICU 4. ID service is following. Critical Care Time: 30 minutes
[2019-05-02] MEDS: LORazepam INJ* 2 MG/ML 1 ML VIAL IV PUSH PRN ×2 (15:28→21:58)
[2019-05-02] MEDS: Benzonatate CAP* 100 MG PO PRN (19:57)
[2019-05-02] MEDS: Albuterol 2.5 MG/3 ML NEB.SOL* (0.083%) INH PRN (23:54)
[2019-05-03] MEDS: Lactated Ringers 1000 ML Bag* 1,000 ML IV SCH ×2 (00:11→18:44)
[2019-05-03] MEDS: cefTRIAXone(*) 1 GM in NS 0.9% 50 ML* 50 ML IVPB SCH (03:07)
[2019-05-03] MEDS: Azithromycin 500 mg/250 ml NS 500 MG/250 ML BAG IVPB SCH (04:58)
[2019-05-03 07:22] LABS: BUN/Creatinine Ratio 7.1 (8-20); Calcium 8.4 mg/dL (8.6-10.3); EGFR African American 203.2 (>60); Potassium 4.3 mmol/L (3.5-5.0)
[2019-05-03 07:59] LABS: ABS Basophils 0.1 10^3/ul (0-0.2); ABS Eosinophils 0.1 10^3/ul (0-0.6); ABS Lymphocytes 2.1 10^3/ul (1.0-4.8); ABS Monocytes 1.1 10^3/ul (0-0.8); ABS Neutrophils 2.6 10^3/ul (1.5-7.7); Eosinophil % 1.1 %; Hematocrit 26 % (35-47); Hemoglobin 8.3 g/dL (12.0-16.0); Lymphocyte % 35.6 %; Mean Corpuscular HGB Conc 32 g/dL (31-36); Mean Corpuscular Hemoglobin 23 pg (27-31); Mean Corpuscular Volume 70 fL (80-97); Mean Platelet Volume 9.8 fL (7.4-10.4); Nucleated Red Blood Cells % 0.1; Platelet Count 19 10^3/uL (150-450); Red Blood Count 3.66 10^6 /uL (3.70-4.87); Red Cell Distribution Width 26 % (10-15); White Blood Count 5.9 10^3/uL (3.5-10.8)
[2019-05-03] MEDS: Albuterol 2.5 MG/3 ML NEB.SOL* (0.083%) INH PRN ×2 (08:09→20:02)
[2019-05-03] MEDS: Acetaminophen TAB* 325 MG PO PRN ×2 (08:14→21:47)
[2019-05-03] MEDS: Oseltamivir CAP* 75 MG CAP PO SCH ×2 (08:14→21:48)
[2019-05-03] MEDS: LORazepam INJ* 2 MG/ML 1 ML VIAL IV PUSH PRN ×2 (09:59→21:49)
--- NOTE | 2019-05-03 11:22 | PN ---
Subjective Date of Service: 05/03/19 Interval History: Pt sitting up in bed talking to S.O. at bedside. Pt reports that she is feeling much better today. However, still complains of significant SOB when getting out of bed to bedside commode. Family History: Unchanged from Admission Social History: Unchanged from Admission Past Medical History: Unchanged from Admission Objective Active Medications: Acetaminophen (Tylenol Tab*) 650 mg PO Q6H PRN PRN Reason: HEADACHE Last Admin: 05/03/19 08:14 Dose: 650 mg Albuterol (Ventolin 2.5 Mg/3 Ml Neb.Marsha*) 2.5 mg INH Q4H PRN PRN Reason: SOB/WHEEZING Last Admin: 05/03/19 08:09 Dose: 2.5 mg Benzonatate (Tessalon Cap*) 100 mg PO BID PRN PRN Reason: COUGH Last Admin: 05/02/19 19:57 Dose: 100 mg Ceftriaxone Sodium 1 gm/ (Sodium Chloride) 50 mls @ 100 mls/hr IVPB Q24H [facility] Last Admin: 05/03/19 03:07 Dose: 100 mls/hr Azithromycin (Zithromax 500 Mg/250 Ml) 500 mg in 250 mls @ 250 mls/hr IVPB Q24H [facility] Last Admin: 05/03/19 04:58 Dose: 250 mls/hr Lactated Ringer's (Lactated Ringers 1000 Ml Bag*) 1,000 mls @ 75 mls/hr IV PER RATE [facility] Last Admin: 05/03/19 00:11 Dose: 75 mls/hr Lorazepam (Ativan Inj*) 1 mg IV PUSH Q6H PRN PRN Reason: AGITATION Last Admin: 05/03/19 09:59 Dose: 1 mg Miscellaneous (Ativan Pyxis Randhawa) 1 ea N/A .ATIVAN IV RANDHAWA PRN PRN Reason: PYXIS RANDHAWA Morphine Sulfate (Morphine Inj (Syringe))*) 2 mg IV Q2H PRN PRN Reason: PAIN - SEVERE Last Admin: 05/01/19 21:42 Dose: 2 mg Ondansetron HCl (Zofran Inj*) 4 mg IV Q4H PRN PRN Reason: NAUSEA/VOMITING Last Admin: 05/01/19 22:02 Dose: 4 mg Oseltamivir Phosphate (Tamiflu Cap*) 75 mg PO BID TEE Stop: 05/06/19 09:01 Last Admin: 05/03/19 08:14 Dose: 75 mg Vital Signs - 8 hr 05/03/19 05/03/19 05/03/19 07:30 08:00 08:11 Temperature 98.4 F Pulse Rate 86 82 Respiratory 16 24 16 Rate Blood Pressure 128/88 (mmHg) O2 Sat by Pulse 98 92 Oximetry 05/03/19 09:59 Temperature Pulse Rate Respiratory 25 Rate Blood Pressure (mmHg) O2 Sat by Pulse Oximetry Oxygen Devices in Use Now: Nasal Cannula Appearance: Pt sitting up in bed watching TV. Does not appear to be in any distress presently. Eyes: No Scleral Icterus, PERRLA Ears/Nose/Mouth/Throat: NL Teeth, Lips, Gums, Clear Oropharnyx, Mucous Membranes Moist, - - Pt did develop very mild controlled epistaxis related to oxygen via nasal cannula. Pt is being switched to humidfied oxygen. Pt is without any oral petechiae or bleeding from gums or oral surfaces. Neck: NL Appearance and Movements; NL JVP, Trachea Midline, No Thyroid Enlargement, Masses Respiratory: Symmetrical Chest Expansion and Respiratory Effort, - - Clear lung sounds upper lobes bilaterally. Rales mid lungs to bases bilaterally. Cardiovascular: NL Sounds; No Murmurs; No JVD, RRR, No Edema Abdominal: NL Sounds; No Tenderness; No Distention, No Hepatosplenomegaly Extremities: No Edema, No Clubbing, Cyanosis Skin: No Rash or Ulcers - No bruising, petichiae, or bleeding noted, - Neurological: Alert and Oriented x 3, NL Sensation, NL Muscle Strength and Tone Result Diagrams: 05/04/19 08:21 05/04/19 08:21 Microbiology and Other Data: Microbiology 04/30/19 01:29 Aerobic Blood Culture - Preliminary Blood Venous No Growth Day 3 Anaerobic Blood Culture - Preliminary No Growth Day 3 04/30/19 01:29 Aerobic Blood Culture - Preliminary Blood Venous No Growth Day 3 Anaerobic Blood Culture - Preliminary No Growth Day 3 04/30/19 16:01 Gram Stain - Final Sputum Expectorated Sputum Culture - Final YEAST Normal Nichol 04/30/19 08:10 Nasal Screen MRSA (PCR) - Final Nasal Mrsa Not Detected 04/30/19 09:15 Legionella Urinary Antigen - Final Urine Negative Legionella Antigen Streptococcus pneumoniae Ag Screen - Final Negative S. pneumo Antigen Assess/Plan/Problems-Billing Assessment: 38 yo female patient with hx of Iron deficiency anemia and Ecoli pyelonephritis with DIC. Pt is in hospital for treatment of Influenza pneumonia and thrombocytopenia without DIC. - Patient Problems (1) Influenzal pneumonia Current Visit: Yes Comment: -Continue IV Antibiotics Ceftriaxone and Azithromycin -Pt instructed supplemental oxygen is imperative to her health at this time. Pt assisted back to bed and oxygen mask replaced. -ID following patient and will be stopping antibiotics as well as tamilflu today. (2) Thrombocytopenia Current Visit: Yes Comment: -PLT level 18 today -Spoke with Dr. Estrada from [facility] he suggests that thrombocytopenia is related to disease process and cephalosporin. Dr. Estrada does not believe PLT need to be replaced. Typically in a baseline healthy pt PLT's are not replaced until less than 10 or there is evidence of active bleeding. -Hgb 8.7 -Hct 27 -Recheck CBC in AM (3) Microcytic anemia Current Visit: Yes Comment: -Continue monitoring CBC (4) DVT prophylaxis Current Visit: No Comment: Encourage ambulation (5) Full code status Current Visit: No (6) Tobacco abuse Current Visit: No Comment: -smokes 1 ppd prior to admission -Would like to quit smoking -Requesting nicotine replacement on D/C
[2019-05-03 16:28] LABS: ABS Basophils 0.1 10^3/ul (0-0.2); ABS Eosinophils 0.1 10^3/ul (0-0.6); ABS Lymphocytes 2.4 10^3/ul (1.0-4.8); ABS Monocytes 1.1 10^3/ul (0-0.8); ABS Neutrophils 3.6 10^3/ul (1.5-7.7); Eosinophil % 0.9 %; Hematocrit 27 % (35-47); Hemoglobin 8.7 g/dL (12.0-16.0); Lymphocyte % 32.9 %; Mean Corpuscular HGB Conc 32 g/dL (31-36); Mean Corpuscular Hemoglobin 22 pg (27-31); Mean Corpuscular Volume 70 fL (80-97); Red Blood Count 3.88 10^6 /uL (3.70-4.87); Red Cell Distribution Width 25 % (10-15); White Blood Count 7.2 10^3/uL (3.5-10.8)
[2019-05-03 17:01] LABS: Activated Partial Thrombo Time 31.8 seconds (26.0-38.0); Fibrinogen 451.4 mg/dL (110.8-404.3); INR 1.02 (0.82-1.09)
[2019-05-03 17:09] LABS: Platelet Count 20 10^3/uL (150-450)
[2019-05-03 17:11] LABS: Microcytosis 2+; Schistocytes 1+
[2019-05-03] MEDS: Benzonatate CAP* 100 MG PO PRN (21:48)
[2019-05-04] MEDS: cefTRIAXone(*) 1 GM in NS 0.9% 50 ML* 50 ML IVPB SCH (03:31)
[2019-05-04] MEDS: Azithromycin 500 mg/250 ml NS 500 MG/250 ML BAG IVPB SCH (04:33)
[2019-05-04] MEDS: Oseltamivir CAP* 75 MG CAP PO SCH (08:12)
[2019-05-04 08:34] LABS: Hematocrit 27 % (35-47); Hemoglobin 8.7 g/dL (12.0-16.0); Mean Corpuscular HGB Conc 32 g/dL (31-36); Mean Corpuscular Hemoglobin 22 pg (27-31); Mean Corpuscular Volume 70 fL (80-97); Red Cell Distribution Width 26 % (10-15); White Blood Count 5.5 10^3/uL (3.5-10.8)
--- NOTE | 2019-05-04 08:45 | PN ---
Progress Note - Progress Note Date of Service: 05/04/19 SOAP: Subjective: CC: Influenza with PNA HPI: Ms. Cervantes is a 38 yo female with PMH significant for microcytic anemia ; who presented to the emergency room with complaints of shortness of breath in the setting of recent influenza dx. She was admitted for PNA and hypoxic respiratory failure in the setting of recent influenza dx. Denies fever, chills , nausea, vomiting, or diarrhea. She continues to have shortness of breath, this is improving overall but is worse with exertion and intermittent cough with clear mucous. Objective: Vital Signs - 8 hr 05/04/19 05/04/19 05/04/19 02:24 03:39 07:15 Temperature 97.3 F 97.6 F Pulse Rate 86 95 Respiratory 18 22 15 Rate Blood Pressure 126/75 133/86 (mmHg) O2 Sat by Pulse 100 100 Oximetry Physical Exam: General: NAD, sitting up in bed Neurological: Alert and Oriented x3 HEENT: Moist MM Cardiovascular: Heart rate regular Respiratory: Lung sounds clear, but diminished in the bases Abdominal: Bowel sounds present; ABD soft, non tender and non distended MSK: MCPHERSON Skin: No rash Laboratory Results - last 24 hr 05/03/19 05/03/19 05/04/19 16:14 16:14 08:21 WBC 7.2 5.5 RBC 3.88 3.90 Hgb 8.7 L 8.7 L Hct 27 L 27 L MCV 70 L 70 L MCH 22 L 22 L MCHC 32 32 RDW 25 H 26 H Plt Count 20 L MPV 10.0 Neut % (Auto) 49.6 Lymph % (Auto) 32.9 [place] % (Auto) 15.8 Eos % (Auto) 0.9 Baso % (Auto) 0.8 Absolute Neuts (auto) 3.6 Absolute Lymphs (auto) 2.4 Absolute Monos (auto) 1.1 H Absolute Eos (auto) 0.1 Absolute Basos (auto) 0.1 Absolute Nucleated RBC 0.0 Nucleated RBC % 0.0 Hypochromasia 2+ Microcytosis 2+ Target Cells 1+ Elliptocytes 1+ Schistocytes 1+ INR (Anticoag Therapy) 1.02 APTT 31.8 Fibrinogen 451.4 H Microbiology 04/30/19 01:29 Aerobic Blood Culture - Preliminary Blood Venous No Growth Day 4 Anaerobic Blood Culture - Preliminary No Growth Day 4 04/30/19 01:29 Aerobic Blood Culture - Preliminary Blood Venous No Growth Day 4 Anaerobic Blood Culture - Preliminary No Growth Day 4 04/30/19 16:01 Gram Stain - Final Sputum Expectorated Sputum Culture - Final YEAST Normal Erin 04/30/19 08:10 Nasal Screen MRSA (PCR) - Final Nasal Mrsa Not Detected 04/30/19 09:15 Legionella Urinary Antigen - Final Urine Negative Legionella Antigen Streptococcus pneumoniae Ag Screen - Final Negative S. pneumo Antigen Assessment: 1. Influenza B with PNA. Suspect PNA is secondary to Influenza, but may represent a secondary infection. Chest xray with bibasilar infiltrates. Urine antigens negative for legionella and S. pneumo. Blood cultures with no growth to date. Sputum culture with yeast and normal erin. HIV testing negative. Afebrile and no leukocytosis. CRP is trending down. On Tamiflu (day 8), Ceftraixone and Azithromycin (day 5). 2. Thrombocytopenia. ? secondary to sepsis and/or Ceftriaxone. 3. Acute hypoxic respiratory failure. Resolving, on room air this morning. Plan: Discontinue Tamiflu, Ceftriaxone and Azithromycin.
[2019-05-04 08:58] LABS: BUN/Creatinine Ratio 8.2 (8-20); Calcium 8.6 mg/dL (8.6-10.3); EGFR African American 170.1 (>60); EGFR Non-African American 140.6 (>60); Potassium 3.8 mmol/L (3.5-5.0)
[2019-05-04 09:05] LABS: ABS Basophils 0.1 10^3/ul (0-0.2); ABS Eosinophils 0.1 10^3/ul (0-0.6); ABS Lymphocytes 2.4 10^3/ul (1.0-4.8); ABS Neutrophils 2.1 10^3/ul (1.5-7.7); Lymphocyte % 43.1 %; Mean Platelet Volume 9.4 fL (7.4-10.4); Nucleated Red Blood Cells % 0.1; Platelet Count 18 10^3/uL (150-450)
[2019-05-04 09:11] LABS: C Reactive Protein 37.91 mg/L (<8.01)
--- NOTE | 2019-05-04 09:33 | PN ---
Subjective Date of Service: 05/04/19 Interval History: Pt reports continued SOB worsening on exertion. pt reports productive cough with clear phlegm. Denies any blood in stools or urine. Has not had any epistaxis since starting humidified oxygen yesterday. Family History: Unchanged from Admission Social History: Unchanged from Admission Past Medical History: Unchanged from Admission Objective Active Medications: Acetaminophen (Tylenol Tab*) 650 mg PO Q6H PRN PRN Reason: HEADACHE Last Admin: 05/03/19 21:47 Dose: 650 mg Albuterol (Ventolin 2.5 Mg/3 Ml Neb.Marsha*) 2.5 mg INH Q4H PRN PRN Reason: SOB/WHEEZING Last Admin: 05/03/19 20:02 Dose: 2.5 mg Benzonatate (Tessalon Cap*) 100 mg PO BID PRN PRN Reason: COUGH Last Admin: 05/03/19 21:48 Dose: 100 mg Ceftriaxone Sodium 1 gm/ (Sodium Chloride) 50 mls @ 100 mls/hr IVPB Q24H [facility] Last Admin: 05/04/19 03:31 Dose: 100 mls/hr Azithromycin (Zithromax 500 Mg/250 Ml) 500 mg in 250 mls @ 250 mls/hr IVPB Q24H [facility] Last Admin: 05/04/19 04:33 Dose: 250 mls/hr Lactated Ringer's (Lactated Ringers 1000 Ml Bag*) 1,000 mls @ 75 mls/hr IV PER RATE [facility] Last Admin: 05/03/19 18:44 Dose: 75 mls/hr Lorazepam (Ativan Inj*) 1 mg IV PUSH Q6H PRN PRN Reason: AGITATION Last Admin: 05/03/19 21:49 Dose: 1 mg Miscellaneous (Ativan Pyxis Randhawa) 1 ea N/A .ATIVAN IV RANDHAWA PRN PRN Reason: PYXIS RANDHAWA Morphine Sulfate (Morphine Inj (Syringe))*) 2 mg IV Q2H PRN PRN Reason: PAIN - SEVERE Last Admin: 05/01/19 21:42 Dose: 2 mg Ondansetron HCl (Zofran Inj*) 4 mg IV Q4H PRN PRN Reason: NAUSEA/VOMITING Last Admin: 05/01/19 22:02 Dose: 4 mg Oseltamivir Phosphate (Tamiflu Cap*) 75 mg PO BID TEE Stop: 05/06/19 09:01 Last Admin: 05/04/19 08:12 Dose: 75 mg Vital Signs - 8 hr 05/04/19 05/04/19 05/04/19 02:24 03:39 07:15 Temperature 97.3 F 97.6 F Pulse Rate 86 95 Respiratory 18 22 15 Rate Blood Pressure 126/75 133/86 (mmHg) O2 Sat by Pulse 100 100 Oximetry 05/04/19 08:00 Temperature Pulse Rate Respiratory 15 Rate Blood Pressure (mmHg) O2 Sat by Pulse Oximetry Oxygen Devices in Use Now: OxyMask - Humidified Appearance: Sitting in chair chatting on phone. Pt does not currently have supplemental oxygen on. Mild SOB no distress presently. Eyes: No Scleral Icterus Ears/Nose/Mouth/Throat: NL Teeth, Lips, Gums, Clear Oropharnyx, Mucous Membranes Moist, - - no bleeding or petechiae noted in oral cavity. No epistaxis Neck: NL Appearance and Movements; NL JVP, Trachea Midline Respiratory: - - Symmetrical chest rise with inspiration, however diffuse rales auscultated worsening mid lungs to the bases where very little air movement is heard. Cardiovascular: NL Sounds; No Murmurs; No JVD, RRR, No Edema Skin: No Rash or Ulcers, - - No ecchymosis or petechia noted Neurological: Alert and Oriented x 3, NL Sensation, NL Gait, NL Muscle Strength and Tone Result Diagrams: 05/04/19 08:21 05/04/19 08:21 Microbiology and Other Data: Microbiology 04/30/19 01:29 Aerobic Blood Culture - Preliminary Blood Venous No Growth Day 3 Anaerobic Blood Culture - Preliminary No Growth Day 3 04/30/19 01:29 Aerobic Blood Culture - Preliminary Blood Venous No Growth Day 3 Anaerobic Blood Culture - Preliminary No Growth Day 3 04/30/19 16:01 Gram Stain - Final Sputum Expectorated Sputum Culture - Final YEAST Normal Nichol 04/30/19 08:10 Nasal Screen MRSA (PCR) - Final Nasal Mrsa Not Detected 04/30/19 09:15 Legionella Urinary Antigen - Final Urine Negative Legionella Antigen Streptococcus pneumoniae Ag Screen - Final Negative S. pneumo Antigen Assess/Plan/Problems-Billing Assessment: 38 yo female patient with hx of Iron deficiency anemia and Ecoli pyelonephritis with DIC. Pt is in hospital for treatment of Influenza Pneumonia and Thrombocytopenia without DIC. - Patient Problems (1) Influenzal pneumonia Current Visit: Yes Comment: -Continue IV Antibiotics Ceftriaxone and Azithromycin -Pt instructed supplemental oxygen is imperative to her health at this time. Pt assisted back to bed and oxygen mask replaced. -ID following patient and will be stopping antibiotics as well as tamilflu today. (2) Thrombocytopenia Current Visit: Yes Comment: -PLT level 18 today -Spoke with Dr. Estrada from [facility] he suggests that thrombocytopenia is related to disease process and cephalosporin. Dr. Estrada does not believe PLT need to be replaced. Typically in a baseline healthy pt PLT's are not replaced until less than 10 or there is evidence of active bleeding. -Hgb 8.7 -Hct 27 -Recheck CBC in AM (3) Microcytic anemia Current Visit: Yes Comment: -Continue monitoring CBC (4) DVT prophylaxis Current Visit: No Comment: Encourage ambulation (5) Full code status Current Visit: No (6) Tobacco abuse Current Visit: No Comment: -smokes 1 ppd prior to admission -Would like to quit smoking -Requesting nicotine replacement on D/C
[2019-05-04] MEDS: LORazepam INJ* 2 MG/ML 1 ML VIAL IV PUSH PRN (22:32)
[2019-05-04] MEDS: Acetaminophen TAB* 325 MG PO PRN (22:35)
--- NOTE | 2019-05-05 01:10 | CONS ---
CC: Christian Shelby NP * MEDICAL ONCOLOGY/HEMATOLOGY CONSULTATION NOTE: DATE OF CONSULTATION: 05/04/19 REASON FOR CONSULTATION: Thrombocytopenia. HISTORY: Isaiah Cervantes is a 38-year-old female who was admitted to the hospital on 04/30/19. At that time, she had presented several days previously to the emergency room. She had had shortness of breath, fevers, and body aches. She was found to be positive for influenza B and started on Tamiflu. She returned to the emergency room and this admission 4 days later with progressive dyspnea on exertion along with reported fevers. She was found to have a chest x-ray concerning for potential bilateral infiltrates along with leukocytosis with a white count of 12,600. She was admitted to the hospital and started on ceftriaxone and Zithromax. At the time of admission, CBC revealed white count 12,600, H and H of 31/9.8 with an MCV of 70 and a platelet count of 90,000. By the following day, platelet count had fallen to 35 and was 25 on 05/02/19 and last 2 days has been 19,000 and 18,000 respectively. H and H fell with initial hydration from hemoglobin of 9.8, down to 7.7 and then to current 8.7 without any transfusions. While it has returned to the normal range, being elevated only on hospital day 1 and better when started on antibiotics. She has had longstanding decreased MCV going back all the way to 2011 or before with MCVs in the low 80s all of these occasions until August 2018 when it was 71 and has remained there this admission. In addition, it should be noted that she has an absolute monocytosis, which is mild, and in the past on multiple occasions since 2014, has had an absolute monocytosis on multiple and in fact all occasions with the monocyte count as high as 4400. Previous blood counts of interest are those during the hospitalization of 2014 when she was admitted with hydronephrosis and platelet count fell from 118 down to 50,000 before rising to a 133,000 at the time of discharge and subsequently on one occasion in 2019 to 398,000. She reports no significant bleeding or bruising other than very heavy periods for many years. In addition, she did have some small amounts of blood on the toilet paper earlier this month and also several months ago. Denies any melena. Denies any blood in the toilet bowl or mixed in the stool. She denies any epistaxis, gum bleeds or any hematuria. She had been advised in the past to take oral iron. Reports she took this many years ago, was once advised to take it again sometime in the last 18 months, did not follow that advice and has not been back on iron replacement. During this admission, her iron level is low at 8% with iron of 25 with TIBC of 333 and a ferritin of 25. She reports that since admission, her breathing has improved modestly. She is still remaining shortness of breath, although improved from prior to admission, from that time of admission. She has not been on any heparin or any other anticoagulations since the time of admission. PAST MEDICAL HISTORY: Significant for pyelonephritis in 2015. No episodes of significant infection in the interim. History of ongoing microcytic anemia. No hypertension, PA, diabetes or CVA. No other hospitalizations. MEDICATIONS: Include ceftriaxone, Zithromax, p.r.n. Ativan and Zofran, and Tylenol. ALLERGIES: None. FAMILY HISTORY: Father of respiratory illness. Mother is alive and on the phone as we are doing our conversation. SOCIAL HISTORY: A cigarette smoker. Lives with her . 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 Occasional marijuana and no significant alcohol. REVIEW OF SYSTEMS: Earlier in the hospitalization, she required high-flow oxygen at 40 L and was hospitalized for a brief period of time in the ICU. Chest x-ray does show bibasilar infiltrates. These seem to have progressed since admission even while her white count is improving. Denies any headaches. Denies any other neurologic complaints. Denies any significant arthritic or bony complaint. Denies any major bleeding problems, other than as discussed above. Review of systems otherwise negative except as discussed above. PHYSICAL EXAMINATION: A 38-year-old female in no acute distress. Vital signs are stable, afebrile. O2 saturations are 97%. HEENT: PERRL. EOMI. No erythema or exudate. No palpable cervical, supraclavicular or axillary adenopathy. Lungs: No rales or wheezes. Breathing is somewhat shallow. Abdomen: Soft, nontender without masses or organomegaly. Normoactive bowel sounds. Extremities: No edema. No CVA or spinal tenderness. DIAGNOSTIC STUDIES/LAB DATA: CBC as discussed above. Other laboratory studies have included negative HIV test. Normal renal function and negative beta hCG. LFTs are normal. C-reactive protein on admission was elevated at 127. IMPRESSION: 1. A 38-year-old female currently hospitalized with complications of influenza B. Found to have progressive infiltrates. She has markedly improved in terms of her breathing from admission. She has been treated with ceftriaxone and Zithromax. We were asked to see her in regard to her thrombocytopenia. This was mild on admission at 90,000, it is quite severe now at 18,000. It should be noted she has been on ceftriaxone this admission and also dropped her platelet count down to 50,000 when on cefepime in the past. Most likely with the combination of infection/sepsis and antibiotics have driven her platelet count down. She recovered well during her previous admission even before discharge. At the present time, given the lack of bleeding and her platelet count of over 10,000, there is no role of any platelet transfusions. If the platelet count were to fall to 10,000 or less, or if she would have significant bleeding or bruising, then platelet transfusion would be an order. If her platelet count does not recover within the next 2 to 3 days, further diagnostic procedures including potential bone marrow biopsy may be necessary. On review of her peripheral smear, there is no evidence of any early forms or of any major toxic granulation. 2. Anemia. This is microcytic in nature, likely related to her heavy periods. She has been advised in the past to take oral iron. Her H and H has been stable over quite some period of time since long before his hospitalization, it has not dropped significantly during this hospitalization. She is strongly advised to resume oral iron. If she were to have even more dramatic drops, IV iron would also be appropriate. She did have couple of episodes in the past several months of rectal bleeding, which sounds more hemorrhoidal than anything else. However, given the significant nature of her anemia, it would be reasonable for her to have studies performed. 3. Longstanding monocytosis. At the present time, this is very mild and her absolute monocyte count is only 1000, minimally above the 800 upper limit of normal. If her significant monocytosis continues or worsen, again this would be a reason for potential bone marrow biopsy. We will continue to follow during this hospitalization. Again, no role for platelet transfusion unless active bleeding or platelet count of 10,000 or less. [id number]/CPS #: [id number] [facility]ITALDesean
[2019-05-05] MEDS: Lactated Ringers 1000 ML Bag* 1,000 ML IV SCH ×2 (05:27→20:42)
[2019-05-05 07:24] LABS: Hematocrit 28 % (35-47); Hemoglobin 9.1 g/dL (12.0-16.0); Mean Corpuscular HGB Conc 33 g/dL (31-36); Mean Corpuscular Hemoglobin 23 pg (27-31); Mean Corpuscular Volume 70 fL (80-97); Red Blood Count 3.99 10^6 /uL (3.70-4.87); Red Cell Distribution Width 25 % (10-15); White Blood Count 6.7 10^3/uL (3.5-10.8)
[2019-05-05 07:25] LABS: ABS Basophils 0.1 10^3/ul (0-0.2); ABS Eosinophils 0.1 10^3/ul (0-0.6); ABS Monocytes 1.3 10^3/ul (0-0.8); ABS Neutrophils 3.2 10^3/ul (1.5-7.7); Eosinophil % 1.6 %; Lymphocyte % 29.5 %
[2019-05-05 08:34] LABS: Mean Platelet Volume 9.6 fL (7.4-10.4)
[2019-05-05 08:37] LABS: Platelet Count 17 10^3/uL (150-450)
--- NOTE | 2019-05-05 09:01 | PN ---
Progress Note - Progress Note Date of Service: 05/05/19 SOAP: Subjective: [No bleeding episodes. Feels like she is recovering from her acute respiratory illness.] Objective: [ Vital Signs: Temp Pulse Resp BP Pulse Ox 97.5 F 74 18 125/69 100 05/05/19 03:10 05/05/19 03:10 05/05/19 07:10 05/05/19 03:10 05/05/19 03:10 Acetaminophen (Tylenol Tab*) 650 mg PO Q6H PRN PRN Reason: HEADACHE Last Admin: 05/04/19 22:35 Dose: 650 mg Albuterol (Ventolin 2.5 Mg/3 Ml Neb.Marsha*) 2.5 mg INH Q4H PRN PRN Reason: SOB/WHEEZING Last Admin: 05/03/19 20:02 Dose: 2.5 mg Benzonatate (Tessalon Cap*) 100 mg PO BID PRN PRN Reason: COUGH Last Admin: 05/03/19 21:48 Dose: 100 mg Lactated Ringer's (Lactated Ringers 1000 Ml Bag*) 1,000 mls @ 75 mls/hr IV PER RATE TEE Last Admin: 05/05/19 05:27 Dose: 75 mls/hr Ferric Sodium Gluconate Complex 125 mg/ Sodium Chloride 110 mls @ 110 mls/hr IVPB ONCE TEE Lorazepam (Ativan Inj*) 1 mg IV PUSH Q6H PRN PRN Reason: AGITATION Last Admin: 05/04/19 22:32 Dose: 1 mg Miscellaneous (Ativan Pyxis Randhawa) 1 ea N/A .ATIVAN IV RANDHAWA PRN PRN Reason: PYXIS RANDHAWA Morphine Sulfate (Morphine Inj (Syringe))*) 2 mg IV Q2H PRN PRN Reason: PAIN - SEVERE Last Admin: 05/01/19 21:42 Dose: 2 mg Ondansetron HCl (Zofran Inj*) 4 mg IV Q4H PRN PRN Reason: NAUSEA/VOMITING Last Admin: 05/01/19 22:02 Dose: 4 mg Laboratory Results - last 24 hr 05/03/19 05/04/19 05/04/19 16:14 08:21 08:21 WBC RBC Hgb Hct MCV MCH MCHC RDW Plt Count 18 L* MPV 9.4 Neut % (Auto) 36.9 Lymph % (Auto) 43.1 Hood % (Auto) 17.4 Eos % (Auto) 1.0 Baso % (Auto) 1.6 Absolute Neuts (auto) 2.1 Absolute Lymphs (auto) 2.4 Absolute Monos (auto) 1.0 H Absolute Eos (auto) 0.1 Absolute Basos (auto) 0.1 Absolute Nucleated RBC 0.0 Nucleated RBC % 0.1 Hem Pathologist Commnt Sodium 137 Potassium 3.8 Chloride 105 Carbon Dioxide 24 Anion Gap 8 BUN 4 L Creatinine 0.49 L Est GFR ( Amer) 170.1 Est GFR (Non-Af Amer) 140.6 BUN/Creatinine Ratio 8.2 Glucose 104 H Calcium 8.6 C-Reactive Protein 37.91 H 05/05/19 07:01 WBC 6.7 RBC 3.99 Hgb 9.1 L Hct 28 L MCV 70 L MCH 23 L MCHC 33 RDW 25 H Plt Count 17 L* MPV 9.6 Neut % (Auto) 48.5 Lymph % (Auto) 29.5 Hood % (Auto) 19.1 Eos % (Auto) 1.6 Baso % (Auto) 1.3 Absolute Neuts (auto) 3.2 Absolute Lymphs (auto) 2.0 Absolute Monos (auto) 1.3 H Absolute Eos (auto) 0.1 Absolute Basos (auto) 0.1 Absolute Nucleated RBC 0.0 Nucleated RBC % 0.0 Hem Pathologist Commnt Sodium Potassium Chloride Carbon Dioxide Anion Gap BUN Creatinine Est GFR ( Amer) Est GFR (Non-Af Amer) BUN/Creatinine Ratio Glucose Calcium C-Reactive Protein Exam: Gen: well appearing 38 yo female in NAD, sitting up and eating breakfast] Assessment: [This is a 38 yo female admitted with complications from influenza. Hematology was consulted for evaluation of precipitous drop in platelets along with chronic anemia. Most likely cause of her thrombocytopenia is acute infection and subsequent marrow suppression related to cephalosporin abx. No evidence for HIT. Ceftriaxone has now been stopped (last dose ~24h ago) with platelet count stable. Plan: [1. Thrombocytopenia - no bleeding and stable - cont to hold cephalosporins and expect recovery of the next several days 2. Anemia, iron deficient - give ferrlicit once today - resume oral iron at discharge 3. Monocytosis 4. Influenza/PNA - management per primary team Dispo: hematology will cont to follow closely, no need to continue inpatient stay for her cytopenias. Recommend repeat CBC 48-72h following discharge.]
[2019-05-05] MEDS ORDERED: Ferric Gluconate IV* 125 MG in NS 0.9% 100 ML* 100 ML IVPB ONE (10:30)
--- NOTE | 2019-05-05 12:34 | PN ---
Subjective Date of Service: 05/05/19 Interval History: Pt reports that she is feeling better today however continues to become SOB with exertion. pt reports coughing up moderate amounts of white sputum after using incentive spirometer. C/O pain in back starting last night that was relieved with tylenol. Pain continues today 05/21, does not request medication at this time. Family History: Unchanged from Admission Social History: Unchanged from Admission Past Medical History: Unchanged from Admission Objective Active Medications: Acetaminophen (Tylenol Tab*) 650 mg PO Q6H PRN PRN Reason: HEADACHE Last Admin: 05/04/19 22:35 Dose: 650 mg Albuterol (Ventolin 2.5 Mg/3 Ml Neb.Marsha*) 2.5 mg INH Q4H PRN PRN Reason: SOB/WHEEZING Last Admin: 05/03/19 20:02 Dose: 2.5 mg Benzonatate (Tessalon Cap*) 100 mg PO BID PRN PRN Reason: COUGH Last Admin: 05/03/19 21:48 Dose: 100 mg Lactated Ringer's (Lactated Ringers 1000 Ml Bag*) 1,000 mls @ 75 mls/hr IV PER RATE TEE Last Admin: 05/05/19 05:27 Dose: 75 mls/hr Lorazepam (Ativan Inj*) 1 mg IV PUSH Q6H PRN PRN Reason: AGITATION Last Admin: 05/04/19 22:32 Dose: 1 mg Miscellaneous (Ativan Pyxis Randhawa) 1 ea N/A .ATIVAN IV RANDHAWA PRN PRN Reason: PYXIS RANDHAWA Morphine Sulfate (Morphine Inj (Syringe))*) 2 mg IV Q2H PRN PRN Reason: PAIN - SEVERE Last Admin: 05/01/19 21:42 Dose: 2 mg Ondansetron HCl (Zofran Inj*) 4 mg IV Q4H PRN PRN Reason: NAUSEA/VOMITING Last Admin: 05/01/19 22:02 Dose: 4 mg Vital Signs - 8 hr 05/05/19 05/05/19 07:10 07:15 Temperature 97.4 F Pulse Rate 82 Respiratory 18 16 Rate Blood Pressure 128/67 (mmHg) O2 Sat by Pulse 99 Oximetry Oxygen Devices in Use Now: None - while sitting in bed patient is not using oxygen and is not in any distress. Appearance: Sitting up in bed, loose posture, conversing with family at bedside. Does not appear to be in any distress presently. Eyes: No Scleral Icterus, PERRLA Ears/Nose/Mouth/Throat: NL Teeth, Lips, Gums, Clear Oropharnyx, Mucous Membranes Moist, - - no evidence of bleeding or petechia Neck: NL Appearance and Movements; NL JVP, Trachea Midline, No Thyroid Enlargement, Masses Respiratory: Symmetrical Chest Expansion and Respiratory Effort, - - Lungs sounds have improved from yesterday, rales are present in bases only. Cardiovascular: NL Sounds; No Murmurs; No JVD, RRR, No Edema Abdominal: NL Sounds; No Tenderness; No Distention, No Hepatosplenomegaly Lymphatic: No Cervical Adenopathy Extremities: No Edema, No Clubbing, Cyanosis Skin: No Rash or Ulcers, No Nodules or Sclerosis, - - remains without any bruising or evidence of bleeding. Neurological: Alert and Oriented x 3, NL Sensation, NL Gait, NL Muscle Strength and Tone Result Diagrams: 05/05/19 07:01 05/04/19 08:21 Microbiology and Other Data: Microbiology 04/30/19 01:29 Aerobic Blood Culture - Preliminary Blood Venous No Growth Day 3 Anaerobic Blood Culture - Preliminary No Growth Day 3 04/30/19 01:29 Aerobic Blood Culture - Preliminary Blood Venous No Growth Day 3 Anaerobic Blood Culture - Preliminary No Growth Day 3 04/30/19 16:01 Gram Stain - Final Sputum Expectorated Sputum Culture - Final YEAST Normal Nichol 04/30/19 08:10 Nasal Screen MRSA (PCR) - Final Nasal Mrsa Not Detected 04/30/19 09:15 Legionella Urinary Antigen - Final Urine Negative Legionella Antigen Streptococcus pneumoniae Ag Screen - Final Negative S. pneumo Antigen Assess/Plan/Problems-Billing Assessment: 38 yo female patient with hx of Iron deficiency anemia and Ecoli pyelonephritis with DIC. Pt is in hospital for treatment of Influenza pneumonia and thrombocytopenia without DIC. - Patient Problems (1) Influenzal pneumonia Current Visit: Yes Comment: -pt is comfortable without using oxygen while in bed. -Ambulatory SpO2 will be obtained today -Pt ambulated around inpatient unit today on room air. Pt tolerated well, 95%-99 % with hr elevation to 102. (2) Thrombocytopenia Current Visit: Yes Comment: -PLT level 17 today -Recheck CBC in AM (3) Microcytic anemia Current Visit: Yes Comment: -Continue monitoring CBC -Ferric Gluconate ordered today by ASHER Garland -Will be followed by Hemoc upon discharge -Pt aware that she will need to adhere to iron supplementation upon discharge (4) DVT prophylaxis Current Visit: Yes Comment: Encourage ambulation (5) Full code status Current Visit: No (6) Tobacco abuse Current Visit: No Comment: -smokes 1 ppd prior to admission -Would like to quit smoking -Requesting nicotine replacement on D/C
[2019-05-05] MEDS: Benzonatate CAP* 100 MG PO PRN (20:40)
[2019-05-05] MEDS: Acetaminophen TAB* 325 MG PO PRN (20:56)
[2019-05-05] MEDS: LORazepam INJ* 2 MG/ML 1 ML VIAL IV PUSH PRN (20:56)
[2019-05-06 07:53] LABS: Hematocrit 28 % (35-47); Hemoglobin 8.9 g/dL (12.0-16.0); Mean Corpuscular HGB Conc 32 g/dL (31-36); Mean Corpuscular Hemoglobin 22 pg (27-31); Mean Corpuscular Volume 70 fL (80-97); Red Cell Distribution Width 26 % (10-15); White Blood Count 11.4 10^3/uL (3.5-10.8)
[2019-05-06 08:30] LABS: Platelet Count 19 10^3/uL (150-450)
[2019-05-06 08:35] LABS: ABS Basophils 0.1 10^3/ul (0-0.2); ABS Eosinophils 0.2 10^3/ul (0-0.6); ABS Lymphocytes 2.7 10^3/ul (1.0-4.8); ABS Monocytes 1.5 10^3/ul (0-0.8); ABS Neutrophils 6.8 10^3/ul (1.5-7.7); Eosinophil % 2.2 %; Lymphocyte % 23.9 %
[2019-05-06 09:37] LABS: Acanthocytes 1+; Microcytosis 1+
--- NOTE | 2019-05-06 13:34 | PN ---
Subjective Date of Service: 05/06/19 Interval History: Pt reports continued improvement in respiratory status. States that she does not feel SOB at rest and has minimal SOB on exertion. Pt denies chest pain and dizziness. Family History: Unchanged from Admission Social History: Unchanged from Admission Past Medical History: Unchanged from Admission Objective Active Medications: Acetaminophen (Tylenol Tab*) 650 mg PO Q6H PRN PRN Reason: HEADACHE Last Admin: 05/05/19 20:56 Dose: 650 mg Albuterol (Ventolin 2.5 Mg/3 Ml Neb.Marsha*) 2.5 mg INH Q4H PRN PRN Reason: SOB/WHEEZING Last Admin: 05/03/19 20:02 Dose: 2.5 mg Benzonatate (Tessalon Cap*) 100 mg PO BID PRN PRN Reason: COUGH Last Admin: 05/05/19 20:40 Dose: 100 mg Lactated Ringer's (Lactated Ringers 1000 Ml Bag*) 1,000 mls @ 75 mls/hr IV PER RATE TEE Last Admin: 05/05/19 20:42 Dose: 75 mls/hr Lorazepam (Ativan Inj*) 1 mg IV PUSH Q6H PRN PRN Reason: AGITATION Last Admin: 05/05/19 20:56 Dose: 1 mg Miscellaneous (Ativan Pyxis Randhawa) 1 ea N/A .ATIVAN IV RANDHAWA PRN PRN Reason: PYXIS RANDHAWA Morphine Sulfate (Morphine Inj (Syringe))*) 2 mg IV Q2H PRN PRN Reason: PAIN - SEVERE Last Admin: 05/01/19 21:42 Dose: 2 mg Ondansetron HCl (Zofran Inj*) 4 mg IV Q4H PRN PRN Reason: NAUSEA/VOMITING Last Admin: 05/01/19 22:02 Dose: 4 mg Vital Signs - 8 hr 05/06/19 05/06/19 05/06/19 07:15 07:20 11:15 Temperature 97.8 F 98.5 F Pulse Rate 84 100 Respiratory 18 16 18 Rate Blood Pressure 112/72 132/90 (mmHg) O2 Sat by Pulse 100 100 Oximetry Oxygen Devices in Use Now: None - tolerating RA oxygen while at rest and with activity Appearance: Laying in bed, video chatting with friend on cell phone. Without any evidence of respiratory distress or pain. Eyes: No Scleral Icterus, PERRLA Ears/Nose/Mouth/Throat: NL Teeth, Lips, Gums, Mucous Membranes Moist Neck: NL Appearance and Movements; NL JVP, Trachea Midline, No Thyroid Enlargement, Masses Respiratory: Symmetrical Chest Expansion and Respiratory Effort, Clear to Auscultation Cardiovascular: NL Sounds; No Murmurs; No JVD, RRR, No Edema Abdominal: NL Sounds; No Tenderness; No Distention, No Hepatosplenomegaly Lymphatic: No Cervical Adenopathy Skin: No Rash or Ulcers Neurological: Alert and Oriented x 3, NL Sensation, NL Gait, NL Muscle Strength and Tone Result Diagrams: 05/06/19 07:37 05/04/19 08:21 Microbiology and Other Data: Microbiology 04/30/19 01:29 Aerobic Blood Culture - Preliminary Blood Venous No Growth Day 3 Anaerobic Blood Culture - Preliminary No Growth Day 3 04/30/19 01:29 Aerobic Blood Culture - Preliminary Blood Venous No Growth Day 3 Anaerobic Blood Culture - Preliminary No Growth Day 3 04/30/19 16:01 Gram Stain - Final Sputum Expectorated Sputum Culture - Final YEAST Normal Nichol 04/30/19 08:10 Nasal Screen MRSA (PCR) - Final Nasal Mrsa Not Detected 04/30/19 09:15 Legionella Urinary Antigen - Final Urine Negative Legionella Antigen Streptococcus pneumoniae Ag Screen - Final Negative S. pneumo Antigen Assess/Plan/Problems-Billing Assessment: 38 yo female patient with hx of Iron deficiency anemia and Ecoli pyelonephritis with DIC. Pt is in hospital for treatment of Influenza pneumonia and thrombocytopenia without DIC. - Patient Problems (1) Influenzal pneumonia Current Visit: Yes Comment: -pt is comfortable without using oxygen while at rest or ambulating around unit. -Lung sounds are now clear throughout all lung abreu -Pt reports frequent use of incentive spirometry (2) Thrombocytopenia Current Visit: Yes Comment: -PLT level 19 today -Remains on bleeding precautions. -No ecchymosis noted, no petechial rashes on mucous membranes -No hematurina or hematochezia -No evidence of bleeding (3) Microcytic anemia Current Visit: Yes Comment: -Continue monitoring CBC -Will be followed by Hemoc upon discharge -Pt aware that she will need to adhere to iron supplementation upon discharge (4) DVT prophylaxis Current Visit: Yes Comment: -Encourage ambulation -Frequent ambulation as tolerated (5) Full code status Current Visit: No (6) Tobacco abuse Current Visit: No Comment: -smokes 1 ppd prior to admission -Would like to quit smoking -Requesting nicotine replacement on D/C
[2019-05-06] MEDS ORDERED: Docusate CAP* 100 MG PO PRN (15:56)
[2019-05-06] MEDS ORDERED: Levofloxacin 750 MG IVPREMIX(* 750 MG/150 ML BAG IVPB SCH (16:00)
[2019-05-06] MEDS: Acetaminophen TAB* 325 MG PO PRN ×2 (16:35→21:18)
[2019-05-06] MEDS: Ferrous Sulfate TAB* 325 MG PO SCH (16:35)
[2019-05-06] MEDS: Lactated Ringers 1000 ML Bag* 1,000 ML IV SCH (16:43)
[2019-05-06] MEDS: LORazepam INJ* 2 MG/ML 1 ML VIAL IV PUSH PRN (21:19)
[2019-05-07] MEDS: Acetaminophen TAB* 325 MG PO PRN (05:47)
[2019-05-07 06:11] LABS: Hematocrit 29 % (35-47); Hemoglobin 9.1 g/dL (12.0-16.0); Mean Corpuscular HGB Conc 31 g/dL (31-36); Mean Corpuscular Hemoglobin 22 pg (27-31); Mean Corpuscular Volume 71 fL (80-97); Red Blood Count 4.13 10^6 /uL (3.70-4.87); Red Cell Distribution Width 25 % (10-15); White Blood Count 13.9 10^3/uL (3.5-10.8)
[2019-05-07 06:32] LABS: ABS Basophils 0.1 10^3/ul (0-0.2); ABS Eosinophils 0.3 10^3/ul (0-0.6); ABS Lymphocytes 3.2 10^3/ul (1.0-4.8); ABS Monocytes 1.8 10^3/ul (0-0.8); ABS Neutrophils 8.5 10^3/ul (1.5-7.7); Eosinophil % 2.4 %; Mean Platelet Volume 9.6 fL (7.4-10.4); Platelet Count 26 10^3/uL (150-450)
[2019-05-07 06:33] LABS: Microcytosis 1+; Polychromasia 1+
[2019-05-07] MEDS: Ferrous Sulfate TAB* 325 MG PO SCH (09:05)
[2019-05-07] MEDS: Lactated Ringers 1000 ML Bag* 1,000 ML IV SCH (09:15)
--- NOTE | 2019-05-07 10:07 | PN ---
Progress Note - Progress Note Date of Service: 05/07/19 SOAP: Subjective: []Feeling OK overall. Feels her nutrition has been very poor and wonders what role this plays. Ambulating around unit without SOB. Denies abd. symptoms. Medications: Acetaminophen (Tylenol Tab*) 650 mg PO Q6H PRN PRN Reason: HEADACHE Last Admin: 05/07/19 05:47 Dose: 650 mg Albuterol (Ventolin 2.5 Mg/3 Ml Neb.Marsha*) 2.5 mg INH Q4H PRN PRN Reason: SOB/WHEEZING Last Admin: 05/03/19 20:02 Dose: 2.5 mg Benzonatate (Tessalon Cap*) 100 mg PO BID PRN PRN Reason: COUGH Last Admin: 05/05/19 20:40 Dose: 100 mg Docusate Sodium (Colace Cap*) 100 mg PO DAILY PRN PRN Reason: CONSTIPATION Last Admin: 05/06/19 16:35 Dose: 100 mg Ferrous Sulfate (Ferrous Sulfate Tab*) 325 mg PO DAILY TEE Last Admin: 05/07/19 09:05 Dose: 325 mg Lactated Ringer's (Lactated Ringers 1000 Ml Bag*) 1,000 mls @ 75 mls/hr IV PER RATE TEE Last Admin: 05/07/19 09:15 Dose: 75 mls/hr Levofloxacin/Dextrose (Levaquin 750 Mg Ivpremix(*)) 750 mg in 150 mls @ 100 mls /hr IVPB Q24H TEE; Protocol Last Admin: 05/06/19 16:43 Dose: 100 mls/hr Miscellaneous (Ativan Pyxis Randhawa) 1 ea N/A .ATIVAN IV RANDHAWA PRN PRN Reason: PYXIS RANDHAWA Morphine Sulfate (Morphine Inj (Syringe))*) 2 mg IV Q2H PRN PRN Reason: PAIN - SEVERE Last Admin: 05/01/19 21:42 Dose: 2 mg Ondansetron HCl (Zofran Inj*) 4 mg IV Q4H PRN PRN Reason: NAUSEA/VOMITING Last Admin: 05/01/19 22:02 Dose: 4 mg Objective: [] Vital Signs Temp Pulse Resp BP Pulse Ox 97.9 F 96 18 124/80 97 05/07/19 07:21 05/07/19 07:21 05/07/19 08:00 05/07/19 07:21 05/07/19 07:21 A&Ox3, EOMI, neuro grossly non-focal HRR LS dim to bilat. bases Laboratory Results - last 24 hr 05/07/19 05:39 WBC 13.9 H RBC 4.13 Hgb 9.1 L Hct 29 L MCV 71 L MCH 22 L MCHC 31 RDW 25 H Plt Count 26 L MPV 9.6 Neut % (Auto) 61.1 Lymph % (Auto) 23.0 [place] % (Auto) 12.6 Eos % (Auto) 2.4 Baso % (Auto) 0.9 Absolute Neuts (auto) 8.5 H Absolute Lymphs (auto) 3.2 Absolute Monos (auto) 1.8 H Absolute Eos (auto) 0.3 Absolute Basos (auto) 0.1 Absolute Nucleated RBC 0.0 Nucleated RBC % 0.0 Polychromasia 1+ Hypochromasia 1+ Anisocytosis 2+ Microcytosis 1+ Target Cells 1+ Elliptocytes 1+ Assessment: []38 yo female admitted with complications from influenza. Hematology was consulted for evaluation of precipitous drop in platelets along with chronic anemia. Most likely cause of her thrombocytopenia is acute infection and subsequent marrow suppression related to cephalosporin abx. No evidence for HIT. Ceftriaxone has now been stopped (last dose ~24h ago) with platelet count snow improving. Plan: []1. Thrombocytopenia: improving, expect cont.'d resolution - avoid cephalosporin - complete course of abx. with quinolones 2. Anemia, iron deficient - s/p 1 dose ferrlicit, cont. oral iron 3. Leukocytosis: likely reactive post severe infection and marrow suppresion 4. Influenza/PNA - management per primary team Dispo: hematology will cont to follow, appears stable for d/c today or tomorrowl. Recommend repeat CBC 48-72h following discharge with hem f/u ~ 2 weeks.
--- NOTE | 2019-05-07 10:50 | PN ---
Progress Note - Progress Note Date of Service: 05/07/19 SOAP: Subjective: CC: Influenza with PNA HPI: Ms. Cervantes is a 38 yo female with PMH significant for microcytic anemia ; who presented to the emergency room with complaints of shortness of breath in the setting of recent influenza dx. She was admitted for PNA and hypoxic respiratory failure in the setting of recent influenza dx. Denies fever, chills , shortness of breath, back pain, muscle pain, joint pain, ABD pain, nausea, vomiting, diarrhea, or urinary symptoms. Objective: Vital Signs - 8 hr 05/07/19 05/07/19 05/07/19 02:54 07:21 08:00 Temperature 97.1 F 97.9 F Pulse Rate 79 96 Respiratory 22 16 18 Rate Blood Pressure 118/76 124/80 (mmHg) O2 Sat by Pulse 100 97 Oximetry Physical Exam: General: NAD, sitting up in bed Neurological: Alert and Oriented x3 HEENT: Moist MM Cardiovascular: Heart rate regular Respiratory: Lung sounds clear, but diminished in the bases Abdominal: Bowel sounds present; ABD soft, non tender and non distended MSK: [place]. No tenderness with palpation of the neck, back or spine Skin: No rash Laboratory Results - last 24 hr 05/07/19 05:39 WBC 13.9 H RBC 4.13 Hgb 9.1 L Hct 29 L MCV 71 L MCH 22 L MCHC 31 RDW 25 H Plt Count 26 L MPV 9.6 Neut % (Auto) 61.1 Lymph % (Auto) 23.0 [place] % (Auto) 12.6 Eos % (Auto) 2.4 Baso % (Auto) 0.9 Absolute Neuts (auto) 8.5 H Absolute Lymphs (auto) 3.2 Absolute Monos (auto) 1.8 H Absolute Eos (auto) 0.3 Absolute Basos (auto) 0.1 Absolute Nucleated RBC 0.0 Nucleated RBC % 0.0 Polychromasia 1+ Hypochromasia 1+ Anisocytosis 2+ Microcytosis 1+ Target Cells 1+ Elliptocytes 1+ Microbiology 04/30/19 01:29 Aerobic Blood Culture - Final Blood Venous No Growth Day 5 Anaerobic Blood Culture - Final No Growth Day 5 04/30/19 01:29 Aerobic Blood Culture - Final Blood Venous No Growth Day 5 Anaerobic Blood Culture - Final No Growth Day 5 04/30/19 16:01 Gram Stain - Final Sputum Expectorated Sputum Culture - Final YEAST Normal Erin 04/30/19 08:10 Nasal Screen MRSA (PCR) - Final Nasal Mrsa Not Detected 04/30/19 09:15 Legionella Urinary Antigen - Final Urine Negative Legionella Antigen Streptococcus pneumoniae Ag Screen - Final Negative S. pneumo Antigen Assessment: 1. Influenza B with PNA. Suspect PNA is secondary to Influenza, but may represent a secondary infection. Chest xray with bibasilar infiltrates. Urine antigens negative for legionella and S. pneumo. Blood cultures with no growth to date. Sputum culture with yeast and normal erin. HIV testing negative. Afebrile. Noted to have leukocytosis for past 2 days. CRP is trending down. Received Tamiflu (x 8 days), Ceftraixone and Azithromycin (x 5 days), ABX were discontinued on Tuesday. 2. Leukocytosis. Noted to have leukocytosis the past 2 days. Also noted to have tachycardia. Differential Dx: New infection (such as UTI, ABD infection), reactive, C-diff, or PE. Denies any complaints; no SOB, cough, back pain, chest pain. Denies urinary symptoms, back pain, or ABD pain; UA pending. She is not hypoxic and denies shortness of breath, but is noted to have mild tachycardia; low suspicion for PE at this time. Denies diarrhea; low suspicion for C-diff. 3. Thrombocytopenia. ? secondary to sepsis and/or Ceftriaxone. Platelet count is improving. 4. Acute hypoxic respiratory failure. Resolved. Plan: Discontinue Levaquin and continue to trend WBC. Consider checking a CRP. Discussed with Michael Ya NP
[2019-05-07 12:24] LABS: Urine Appearance Clear; Urine Bilirubin Negative (Negative); Urine Blood Negative (Negative); Urine Color Straw; Urine Glucose Negative (Negative); Urine Ketones Negative (Negative); Urine Nitrite Negative (Negative); Urine Protein Negative (Negative); Urine Specific Gravity 1.006 (1.010-1.030); Urine Urobilinogen Negative (Negative)
--- NOTE | 2019-05-07 15:23 | PN ---
Subjective Date of Service: 05/07/19 Interval History: Reports feeling well today. Denies any SOB, Chest pain, dizziness. Reports had small BM does not feel colace is working well for her. Family History: Unchanged from Admission Social History: Unchanged from Admission Past Medical History: Unchanged from Admission Objective Active Medications: Acetaminophen (Tylenol Tab*) 650 mg PO Q6H PRN PRN Reason: HEADACHE Last Admin: 05/07/19 05:47 Dose: 650 mg Albuterol (Ventolin 2.5 Mg/3 Ml Neb.Marsha*) 2.5 mg INH Q4H PRN PRN Reason: SOB/WHEEZING Last Admin: 05/03/19 20:02 Dose: 2.5 mg Benzonatate (Tessalon Cap*) 100 mg PO BID PRN PRN Reason: COUGH Last Admin: 05/05/19 20:40 Dose: 100 mg Docusate Sodium (Colace Cap*) 100 mg PO DAILY PRN PRN Reason: CONSTIPATION Last Admin: 05/06/19 16:35 Dose: 100 mg Ferrous Sulfate (Ferrous Sulfate Tab*) 325 mg PO DAILY [facility] Last Admin: 05/07/19 09:05 Dose: 325 mg Lactated Ringer's (Lactated Ringers 1000 Ml Bag*) 1,000 mls @ 75 mls/hr IV PER RATE [facility] Last Admin: 05/07/19 09:15 Dose: 75 mls/hr Miscellaneous (Ativan Pyxis Randhawa) 1 ea N/A .ATIVAN IV RANDHAWA PRN PRN Reason: PYXIS RANDHAWA Ondansetron HCl (Zofran Inj*) 4 mg IV Q4H PRN PRN Reason: NAUSEA/VOMITING Last Admin: 05/01/19 22:02 Dose: 4 mg Vital Signs - 8 hr 05/07/19 05/07/19 05/07/19 07:21 08:00 11:42 Temperature 97.9 F 97.7 F Pulse Rate 96 92 Respiratory 16 18 16 Rate Blood Pressure 124/80 146/84 (mmHg) O2 Sat by Pulse 97 100 Oximetry Oxygen Devices in Use Now: None Appearance: Pt laying in bed eating breakfast. Does not appear to be in any respiratory distress. Eyes: No Scleral Icterus, PERRLA Ears/Nose/Mouth/Throat: NL Teeth, Lips, Gums, Clear Oropharnyx, Mucous Membranes Moist Neck: NL Appearance and Movements; NL JVP, Trachea Midline, No Thyroid Enlargement, Masses Respiratory: Symmetrical Chest Expansion and Respiratory Effort, Clear to Auscultation Cardiovascular: NL Sounds; No Murmurs; No JVD, RRR, No Edema Abdominal: NL Sounds; No Tenderness; No Distention, No Hepatosplenomegaly Lymphatic: No Cervical Adenopathy Extremities: No Edema, No Clubbing, Cyanosis Skin: No Rash or Ulcers, No Nodules or Sclerosis Neurological: Alert and Oriented x 3, NL Sensation, NL Gait, NL Muscle Strength and Tone Result Diagrams: 05/07/19 05:39 05/04/19 08:21 Microbiology and Other Data: Microbiology 04/30/19 01:29 Aerobic Blood Culture - Preliminary Blood Venous No Growth Day 3 Anaerobic Blood Culture - Preliminary No Growth Day 3 04/30/19 01:29 Aerobic Blood Culture - Preliminary Blood Venous No Growth Day 3 Anaerobic Blood Culture - Preliminary No Growth Day 3 04/30/19 16:01 Gram Stain - Final Sputum Expectorated Sputum Culture - Final YEAST Normal Nichol 04/30/19 08:10 Nasal Screen MRSA (PCR) - Final Nasal Mrsa Not Detected 04/30/19 09:15 Legionella Urinary Antigen - Final Urine Negative Legionella Antigen Streptococcus pneumoniae Ag Screen - Final Negative S. pneumo Antigen Assess/Plan/Problems-Billing Assessment: 38 yo female patient with hx of Iron deficiency anemia and Ecoli pyelonephritis with DIC. Pt is in hospital for treatment of Influenza pneumonia and thrombocytopenia without DIC. - Patient Problems (1) Leukocytosis Current Visit: Yes Status: Acute Code(s): D72.829 - ELEVATED WHITE BLOOD CELL COUNT, UNSPECIFIED SNOMED Code(s): 530451782 Comment: -Developed leukocytosis yesterday. 05/06/19 WBC 11.4 -05/07/19 WBC 13.9 -Pt denies any new complaints, pt's physical presentation does not reflect labratory values was started on levofloxacin 05/06/19. Will continue levaquin (2) Influenzal pneumonia Current Visit: Yes Comment: -pt is comfortable without using oxygen while at rest or ambulating around unit. -Lung sounds remain clear throughout all lung abreu -Pt reports continued use of incentive spirometry (3) Thrombocytopenia Current Visit: Yes Comment: -PLT level 26 today -Remains on bleeding precautions. -No ecchymosis noted, no petechial rashes on mucous membranes -No hematuria or hematochezia -No evidence of bleeding (4) Microcytic anemia Current Visit: Yes Comment: -Continue monitoring CBC -Will be followed by [facility] upon discharge -Pt aware that she will need to adhere to iron supplementation upon discharge (5) DVT prophylaxis Current Visit: Yes Comment: -Encourage ambulation -Frequent ambulation as tolerated (6) Full code status Current Visit: No (7) Tobacco abuse Current Visit: No Comment: -smokes 1 ppd prior to admission -Would like to quit smoking -Requesting nicotine replacement on D/C
[2019-05-07] MEDS ORDERED: Levofloxacin 750 MG IVPREMIX(* 750 MG/150 ML BAG IVPB SCH (18:00)
[2019-05-07] MEDS ORDERED: LORazepam TAB(*) 1 MG PO ONE (23:10)
[2019-05-08] MEDS: Lactated Ringers 1000 ML Bag* 1,000 ML IV SCH (04:19)
[2019-05-08 06:27] LABS: Hematocrit 30 % (35-47); Hemoglobin 9.3 g/dL (12.0-16.0); Mean Corpuscular HGB Conc 31 g/dL (31-36); Mean Corpuscular Hemoglobin 22 pg (27-31); Mean Corpuscular Volume 71 fL (80-97); Red Blood Count 4.22 10^6 /uL (3.70-4.87); Red Cell Distribution Width 26 % (10-15); White Blood Count 16.2 10^3/uL (3.5-10.8)
[2019-05-08 06:38] LABS: Albumin 3.6 g/dL (3.2-5.2); Calcium 9.3 mg/dL (8.6-10.3); EGFR African American 142.9 (>60); EGFR Non-African American 118.1 (>60); Globulin 3.6 g/dL (2-4); Potassium 4.2 mmol/L (3.5-5.0); Total Bilirubin 0.2 mg/dL (0.2-1.0); Total Protein 7.2 g/dL (6.4-8.9)
[2019-05-08 07:24] LABS: ABS Basophils 0.1 10^3/ul (0-0.2); ABS Eosinophils 0.3 10^3/ul (0-0.6); ABS Monocytes 2.2 10^3/ul (0-0.8); ABS Neutrophils 10.5 10^3/ul (1.5-7.7); Eosinophil % 1.8 %; Lymphocyte % 18.4 %; Mean Platelet Volume 10.7 fL (7.4-10.4); Nucleated Red Blood Cells % 0.1; Platelet Count 59 10^3/uL (150-450); Polychromasia 1+
[2019-05-08 07:32] VITALS: BP 112/73
[2019-05-08 08:35] LABS: C Reactive Protein 6.53 mg/L (<8.01)
[2019-05-08] MEDS: Ferrous Sulfate TAB* 325 MG PO SCH (09:05)
--- NOTE | 2019-05-08 21:51 | DS ---
CC: Christian Shelby NP * DISCHARGE SUMMARY: DATE OF ADMISSION: 04/30/19 DATE OF DISCHARGE: 05/08/19 PRIMARY CARE PROVIDER: Christian Shelby NP ATTENDING PHYSICIAN: Dr. Matilde Zamora * (dictated by JEWEL Alcantar) PRIMARY DIAGNOSES: 1. Sepsis due to influenza, pneumonia. 2. Influenza B. 3. Pneumonia. 4. Acute hypoxic respiratory failure. 5. Thrombocytopenia likely secondary to cephalosporin use. 6. Leukocytosis likely reactive status post treatment of influenza and pneumonia, likely reactive. SECONDARY DIAGNOSES: 1. Iron deficiency anemia. 2. History of pyelonephritis with Escherichia coli, mild DIC. STUDIES WHILE IN THE HOSPITAL: 1. Chest x-ray, impression: Bilateral mid and lower lung consolidation. Recommend followup until resolution to exclude underlying pulmonary parenchymal pathology. 2. Chest x-ray, impression: There has been interval development of bilateral lower lung consolidation. Recommend to followup until resolution to exclude underlying pulmonary parenchymal pathology. 3. Transthoracic echocardiogram, summary: LV systolic function hyperdynamic. Estimated EF 70% to 75%. Wall motion normal. No regional wall motion abnormalities. No significant MR. AV probably trileaflet, normal thickness, no evidence of . No significant TR. No significant pericardial effusion compared to 09/30/14 no change. 4. Chest x-ray, impression: Bilateral infiltrates, unchanged. 5. Chest x-ray, impression: Persistent patchy bibasilar airspace disease. 6. Chest x-ray, impression: Suggestion of mild patchy alveolar consolidation at the right middle lobe without significant interval change, minimal left lower lung zone linear atelectasis with interval resolution of previous more confluent left basilar airspace consolidation. CONSULTATIONS WHILE IN THE HOSPITAL: 1. Infectious Disease, impression: Influenza with pneumonia, which is probably due to influenza, but could be secondary infection. Blood cultures negative. Pneumococcal and legionella antigens negative. Gram stain of sputum shows probably oral erin, oxygen requirements, symptoms improving. So, I think she is adequately covered if this is a secondary bacterial process. Thrombocytopenia due to sepsis. Acute hypoxemic respiratory failure, on supplemental oxygen. 2. Hematology: Thrombocytopenia down to 18,000. She has been on ceftriaxone this admission and also dropped platelets to 50,000 when on cefepime, most likely with combination of infection, sepsis, and antibiotics has driven her platelet count down. If platelet count does not recover within next 2 or 3 days further diagnostic procedures including potential bone marrow biopsy may be necessary. DISCHARGE MEDICATIONS: Home medications: None. [place] Medications: 1. Albuterol/ipratropium 1 nebulization inhalation q.4 hours p.r.n. shortness of breath. 2. Ferrous sulfate 325 mg p.o. daily. HISTORY OF PRESENT ILLNESS/HOSPITAL COURSE: Ms. Cervantes is a 38-year-old female with a past medical history of iron deficiency anemia, who presented to the ER on 04/30/19 with complaints of dyspnea, coughing, subjective fevers. For full and complete details, please see the history and physical dictated by Dr. Rashi Zepeda, but in short, the patient presented with these symptoms. She was recently diagnosed with influenza B prior to admission and was being treated with oseltamivir. Upon admission, the patient met sepsis criteria with tachycardia, leukocytosis. She was mildly febrile within the first 24 hours of admission but this resolved since that time. T-max was 101. The patient continued treatment for her influenza with oseltamivir and received 8 days of treatment total. She was noted to have pneumonia at admission which was treated with 8 days of ceftriaxone and 5 days of azithromycin. The patient required high doses of oxygen at admission and was eventually transferred to the intensive care unit due to acute hypoxic respiratory failure requiring Vapotherm. She was eventually weaned off and transferred to the floor. She was noted to have worsening thrombocytopenia throughout her stay. Her lowest count was 17,000. Hematology was consulted and recommended discontinuation of ceftriaxone. Once ceftriaxone was discontinued, the patient's platelet count trended up to 59 at discharge. She is also noted to have a microcytic anemia. Iron studies showed low iron, therefore, it was recommended she start iron supplementation which she was discharged on. Infectious Disease followed throughout the patient's stay and made continual recommendations about the patient's care. At the time of discharge, her CRP on 05/04/19 was 37.91 and on the day of discharge on 05/08/19 it went down to 6.53, within normal range. Her leukocytosis, on the other hand, trended up over the last 3 days of her hospital stay and reached a max of 16.2 on the day of discharge. There was concern for his, although the patient had no signs of worsening infection. She stated she felt well and did have a residual cough but denied fevers, chills, urinary symptoms, abdominal pain, nausea, vomiting, diarrhea. Due to the concerning elevation in her white blood cell count, it was recommended that the patient stay until she was reassessed by Dr. Tao, Infectious Disease. The patient was adamant that she be discharged prior to meeting with him and therefore, we were unable to get further input from ID. With this, my recommendation is that the patient follow up in approximately 3 days for a repeat CBC and CRP and then follow with her primary care provider. She should make follow up appointments with Dr. Tao and her primary care provider, Dr. Christian Shelby regarding her repeat lab results. In the meantime, she has been prescribed a DuoNeb and ferrous sulfate. We were unable to get the patient's nebulizer prior to discharge as she was eager to leave and therefore could not wait for further paperwork. She does have a history of tobacco abuse and therefore could likely benefit from DuoNeb nebulizers. Again, the patient was recommended to stay to meet with Infectious Disease, but she has requested to leave immediately and is unwilling to wait. Ms. Cervantes is stable for discharge. PHYSICAL EXAMINATION: General: Ms. Cervantes is a well-developed, well-nourished , thin, middle-aged black woman who is sitting up in bed. She appears to be in no acute distress. She is breathing comfortably on room air. HEENT: PERRL. EOMI. Hearing is grossly intact. Oral mucous membranes are moist. There are no lesions. The pharynx is clear. Cardiovascular: Regular rate and rhythm with S1, S2 present. No murmurs, rubs, clicks, or gallops. There is no JVD or peripheral edema. Pulmonary: Symmetrical chest expansion without any accessory muscles required for auscultation bilaterally without rhonchi, wheeze , or rales. Abdomen: Bowel sounds in all quadrants. Soft, nontender to palpation. Musculoskeletal: Full range of motion without pain or deformities. Steady gait without impairment. ASSESSMENT AND PLAN: Ms. Cervantes is stable for discharge home. CONDITION: Fair. DIET: Heart healthy. ACTIVITY: As tolerated. MEDICATIONS: 1. Iron supplement sent to pharmacy. 2. DuoNeb treatment sent to pharmacy. EDUCATION: 1. Repeat CBC, CRP in 3 to 5 days and prior to follow up appointments. 2. Follow up with Dr. Tao, Infectious Disease in 4 to 7 days. 3. Follow up with primary care provider in 4 to 7 days. 4. Return to the ER or nearest hospital if you experience any return or worsening of symptoms, chest pain or discomfort, shortness of breath, high fevers, chills, night sweats, dizziness, lightheadedness, loss of consciousness , or any other worrisome signs or symptoms. This is a summarized report of a complex medical history and hospital stay. For further details, please see the entire medical record. TIME SPENT: Approximately 45 minutes were spent on this discharge, greater than half that time was spent [id number] with the patient discussing discharge plans and instructions. JEWEL JONES [id number]/CPS #: [id number] MTDD
== END 2019-05-08 13:25 | disposition home or self-care (01) | DRG 720 ==
LOC: ED 01:00 → ICU 07:01 → MED 05-02 07:54
PROVIDERS: ADMIT Internal Medicine; ATTEND Internal Medicine
PROC: 3E0F7GC Introduction of Other Therapeutic Substance into Respiratory Tract, Via Natural or Artificial Opening (ICD-10-PCS; principal; 2019-04-30)
DX: A41.9 Sepsis, unspecified organism (principal); J96.01 Acute respiratory failure with hypoxia; J10.08 Influenza due to other identified influenza virus with other specified pneumonia; J12.9 Viral pneumonia, unspecified; J98.11 Atelectasis; D69.59 Other secondary thrombocytopenia; T36.1X5A Adverse effect of cephalosporins and other beta-lactam antibiotics, initial encounter; D72.821 Monocytosis (symptomatic); F17.210 Nicotine dependence, cigarettes, uncomplicated; D50.9 Iron deficiency anemia, unspecified; Z82.5 Family history of asthma and other chronic lower respiratory diseases; Y92.9 Unspecified place or not applicable; Z82.49 Family history of ischemic heart disease and other diseases of the circulatory system
CPT/HCPCS: 36415; 36600; 71045; 71046; 80048; 80053; 81003; 82728; 82803; 83540; 83550; 83605; 83880; 84484; 84702; 85025; 85060; 85379; 85384; 85610; 85730; 86140; 87040; 87070; 87205; 87389; 87641; 87899; 93005; 93306; 94640; 99232; 99285; A9270-GY; J0456; J0696; J2060; J2270; J2405; J2916

== ENCOUNTER 2019-05-21 22:21 | Emergency (ER) | payer OTHER ==
[2019-05-21 22:31] VITALS: BP 132/85
--- OUTSIDE RECORDS SUMMARY | 2019-05-21 22:45 | XMS REPORT | Continuity of Care Document ---
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 [phone] Medicine Problems Active Problems Provider Date Tobacco user Christian Shelby NP Onset: 12/03/2015 Social History Type Date Description Comments Sex Unknown ETOH Use Currently consumes alcohol 5 drinks/week Tobacco Use Start: Unknown Patient is a current 1 ppd x 15 yrs smoker, smokes every day Smoking Status Reviewed: 05/14/19 Patient is a current 1 ppd x 15 yrs smoker, smokes every day Exercise Type/Frequency Exercises sporadically Allergies, Adverse Reactions, Alerts Description No Known Drug Allergies Medications Active Medications SIG Qnty Indications Ordering Date Provider Ensure Plus 1 can three times 90units R63.4 Christian Shelby NP 04/26/2018 Liquid daily Nicotine Step 1 apply one patch 30units Z72.0 Christian Shelby NP 11/28/2015 daily for 6 week 21mg/24HR Patches 24HR Ferrous Sulfate Take 1 Tablet By Unknown Mouth Every Day 325(65Fe) mg Tablets Ipratropium Inhale The Unknown [place]/Albuterol Contents Of 1 Vial Sulfate Via Nebulizer Every 4 Hours 0.5-2.5(3)mg/3ML Solution Immunizations Description No Information Available Vital Signs Date Vital Result Comment 05/14/2019 2:04pm Height 66 inches 5'6" Weight 125.38 lb Heart Rate 96 /min BP Systolic 111 mmHg BP Diastolic 68 mmHg Body Temperature 97.7 F O2 % BldC Oximetry 96 % BMI (Body Mass Index) 20.2 kg/m2 04/26/2018 1:08pm Height 66 inches 5'6" Weight 126.00 lb Heart Rate 102 /min BP Systolic 130 mmHg BP Diastolic 82 mmHg O2 % BldC Oximetry 98 % BMI (Body Mass Index) 20.3 kg/m2 Results Test Acquired Date Facility Test Result H/L Range Note Laboratory test 04/30/2019 [facility] Troponin-I 0.00 ng/mL < 0.[address] (TnI) [place] [address] [phone] Comp Metabolic 04/30/2019 [facility] Sodium 134 mmol/L Low 135 -[address] [place] [address] [phone] Potassium 3.9 mmol/L Normal 3.5-5.0 Chloride 100 mmol/L Low 101-111 Co2 Carbon Dioxide 27 mmol/L Normal 22-32 Anion Gap 7 mmol/L Normal 2-11 Calcium 8.6 mg/dL Normal 8.6-10.3 Albumin 3.9 g/dL Normal 3.2-5.2 Total Bilirubin 0.30 mg/dL Normal 0.2-1.0 Glucose 125 mg/dL High 70-100 Blood Urea Nitrogen 3 mg/dL Low 6-24 Creatinine 0.63 mg/dL Normal 0.51-0.95 BUN/Creatinine Ratio 4.8 Low 8-20 Total Protein 7.5 g/dL Normal 6.4-8.9 Globulin 3.6 g/dL Normal 2-4 Albumin/Globulin Ratio 1.1 Normal 1-3 Alkaline Phosphatase 71 U/L Normal 34-104 Alt 21 U/L Normal 7-52 Ast 36 U/L Normal 13-39 Egfr Non- 105.2 >60 Egfr 127.3 >60 2 Laboratory test 04/30/2019 [facility] Lactic Acid 1.1 mmol/L Normal 0.5-2.[address] [place] [address] [phone] CBC Auto Diff 04/30/2019 [facility] White Blood 12.6 High 3.5- 10.[address] Count 10^3/[place] [address] [phone] Red Blood Count 4.40 10^6/uL Normal 3.70-4.87 Hemoglobin 9.8 g/dL Low 12.0-16.0 Hematocrit 31 % Low 35-47 Mean Corpuscular Volume 70 fL Low 80-97 4 Mean Corpuscular Hemoglobin 22 pg Low 27-31 Mean Corpuscular HGB Conc 32 g/dL Normal 31-36 Red Cell Distribution Width 26 % High 10-15 5 Platelet Count 90 10^3/uL Low 150-450 Mean Platelet Volume 10.8 fL High 7.4-10.4 Abs Neutrophils 8.3 10^3/uL High 1.5-7.7 Abs Lymphocytes 1.7 10^3/uL Normal 1.0-4.8 Abs Monocytes 1.8 10^3/uL High 0-0.8 Abs Eosinophils 0.0 10^3/uL Normal 0-0.6 Abs Basophils 0.1 10^3/uL Normal 0-0.2 Abs Nucleated RBC 0.0 10^3/uL Granulocyte % 69.3 % Lymphocyte % 14.6 % Monocyte % 15.1 % Eosinophil % 0.0 % Basophil % 1.0 % Nucleated Red Blood Cells % 0.2 Cell Morphology 04/30/2019 [facility] Platelet Morphology Large [address] [place] [address] [phone] Microcytosis 1+ Anisocytosis 2+ Laboratory 04/30/2019 [facility] D Dimer < 200 Normal Less 6 test finding [address] Quantitative ng/mL Than [address] [place] [address] [phone] C Reactive Protein 127.52 mg/L High <8.01 B-Type Natriuretic Peptide BNP 171 pg/mL High <=100 Blood Culture SEE RESULT BELOW 7 Influenza A & B 04/26/2019 [facility] Flu AB Disclaimer (SEE NOTE) [address] [place] [address] [phone] Influenza B Molecular POSITIVE Abnormal Negative 9 1 Troponin-I testing on Plasma Separator Tubes (PST) has a known false positive rate of 0.20-0.40%. All positive troponins reflex immediately to secondary confirmatory testing. Using the L'ArcoBalenoI 800 Access Immunoassay systems, the 99th percentile upper reference limit was demonstrated to be < 0.03 ng/mL. 2 Because ethnic data is not always readily available, this report includes an eGFR for both -Americans and non- Americans. The National Kidney Disease Education Program (NKDEP) does not endorse the use of the MDRD equation for patients that are not between the ages of 18 and 70, are , have extremes of body size, muscle mass, or nutritional status, or are non- or non-. According to the National Kidney Foundation, irrespective of diagnosis, the stage of the disease is based on the level of kidney function: Stage Description GFR(mL/min/1.73 m(2)) 1 Kidney damage with normal or decreased GFR 90 2 Kidney damage with mild decrease in GFR 60-89 3 Moderate decrease in GFR 30-59 4 Severe decrease in GFR 15-29 5 Kidney failure <15 (or dialysis) 3 [facility] Severe Sepsis and Septic Shock Management Bundle Measure requires all lactic acids initially measuring >2.0 mmol/L be repeated. 4 Consistent with Previous Results Reported on 08/28/18. 5 Consistent with Previous Results Reported on 08/28/18. 6 Please note: The following may produce a false positive D Dimer test: - Rheumatoid factor greater than 60 IU/ml - Plasma hemoglobin greater than 0.05 gm/dl - Bilirubin greater than 50 mg/dl - Lipids greater than 1000 mg/dl - FDP greater than 20 ug/ml 7 SEE RESULT BELOW Name: AYLIN CERVANTES : [address]: Daniel Colvin MD Acct: [id number] Unit: [id number] AGE: 38 Location: [address] Re04/30/19 SEX: F Status: ADM IN SPEC: [id number] PRISCILLA: 04/30/19-[address] [facility] [address]: Hugo Awad MD REQ: [id number] RECD: 04/30/19-0133 STATUS: COMP FLORY DR: Christian Shelby PAINTER AND GRADER CORK _ SOURCE: BLOOD,VENO SPDESC: ORDERED: Blood Cult Procedure Result Reported Site Aerobic Culture Bottle Final 05/05/19- 0133 ML No Growth Day 5 Anaerobic Culture Bottle Final 05/05/19- 0133 ML No Growth Day 5 * ML - Main Lab . END OF REPORT DEPARTMENT OF PATHOLOGY, [address] [place] [address] Troy Peacock M.D. Director [facility] # [id number] 8 Suboptimal collection technique may reduce sensitivity of test. Refer to the [facility] Test Catalog for collection information: [email or web address] As with all diagnostic procedures, the laboratory results obtained should be used in conjunction with other clinical information available to the physician, including confirmation by another method, as applicable. 9 Plaster Patternmaker: [id number] Procedures Date Code Description Status 04/30/2019 90706 ECHO Transthorasic Realtime 2D W Doppler & Color Flow Hosp Completed Medical Devices Description No Information Available Encounters Type Date Location Provider Dx Diagnosis Office Visit 05/14/2019 [facility] [employer] Internal Christian Afsaneh, PAINTER AND GRADER CORK J18.9 Pneumonia, 1:40p Medicine - Ccmob unspecified organism D72.829 Elevated white blood cell count, unspecified D69.6 Thrombocytopenia, unspecified D50.9 Iron deficiency anemia, unspecified R79.82 Elevated C-reactive protein (CRP) Office Visit 05/04/2019 [facility], [facility] J11.00 Flu due to 8:40a For Infectious Angie, PAINTER AND GRADER CORK unidentified flu Diseases virus w unsp type of pneumonia J96.01 Acute respiratory failure with hypoxia D69.6 Thrombocytopenia, unspecified Office Visit 05/02/2019 [facility], [facility] J11.00 Flu due to 8:39a For Infectious Angie, PAINTER AND GRADER CORK unidentified flu Diseases virus w unsp type of pneumonia J96.01 Acute respiratory failure with hypoxia D69.6 Thrombocytopenia, unspecified Office Visit 05/01/2019 8:37a [facility] For Pedro Saunders J10.00 Flu due to [facility] Diamond Azul M.D. ident flu virus Diseases w unsp type of pneumonia J96.01 Acute respiratory failure with hypoxia D69.6 Thrombocytopenia, unspecified Assessments Date Code Description Provider 05/14/2019 J18.9 Pneumonia, unspecified organism Christian Afsaneh, PAINTER AND GRADER CORK 05/14/2019 D72.829 Elevated white blood cell count, Christian Afsaneh, PAINTER AND GRADER CORK unspecified 05/14/2019 D69.6 Thrombocytopenia, unspecified Christian Afsaneh, PAINTER AND GRADER CORK 05/14/2019 D50.9 Iron deficiency anemia, unspecified Christian Afsaneh, PAINTER AND GRADER CORK 05/14/2019 R79.82 Elevated C-reactive protein (CRP) Christian Afsnaeh, PAINTER AND GRADER CORK 05/07/2019 D72.829 Elevated white blood cell count, Ge Ya, PAINTER AND GRADER CORK unspecified 05/07/2019 J11.00 Influenza due to unidentified Ge Ya PAINTER AND GRADER CORK influenza virus with unspecified type of pneumonia 05/07/2019 D69.6 Thrombocytopenia, unspecified Ge Ya, PAINTER AND GRADER CORK 05/07/2019 D50.9 Iron deficiency anemia, unspecified Ge Ya, PAINTER AND GRADER CORK 05/07/2019 Z72.0 Tobacco use Ge Ya NP 05/06/2019 J11.00 Influenza due to unidentified Ge Ya, PAINTER AND GRADER CORK influenza virus with unspecified type of pneumonia 05/06/2019 D69.6 Thrombocytopenia, unspecified Ge Ya, PAINTER AND GRADER CORK 05/06/2019 D50.9 Iron deficiency anemia, unspecified Ge Ya, PAINTER AND GRADER CORK 05/06/2019 Z72.0 Tobacco use Ge Ya, PAINTER AND GRADER CORK 05/05/2019 J11.00 Influenza due to unidentified Ge Ya, PAINTER AND GRADER CORK influenza virus with unspecified type of pneumonia 05/05/2019 D69.6 Thrombocytopenia, unspecified Ge Ya, PAINTER AND GRADER CORK 05/05/2019 D50.9 Iron deficiency anemia, unspecified Ge Ya, PAINTER AND GRADER CORK 05/05/2019 Z72.0 Tobacco use Ge Ya, PAINTER AND GRADER CORK 05/04/2019 J11.00 Influenza due to unidentified Ge Ya, PAINTER AND GRADER CORK influenza virus with unspecified type of pneumonia 05/04/2019 J11.00 Influenza due to unidentified Linh Adams, PAINTER AND GRADER CORK influenza virus with unspecified type of pneumonia 05/04/2019 D69.6 Thrombocytopenia, unspecified Ge Ya, PAINTER AND GRADER CORK 05/04/2019 J96.01 Acute respiratory failure with Linhyadira Adams, PAINTER AND GRADER CORK hypoxia 05/04/2019 D50.9 Iron deficiency anemia, unspecified Ge Ya, PAINTER AND GRADER CORK 05/04/2019 D69.6 Thrombocytopenia, unspecified Linh Lorasebastiangavinyvette Adams, PAINTER AND GRADER CORK 05/04/2019 Z72.0 Tobacco use Ge Ya, PAINTER AND GRADER CORK 05/03/2019 J11.00 Influenza due to unidentified Ge Ya, PAINTER AND GRADER CORK influenza virus with unspecified type of pneumonia 05/03/2019 D69.6 Thrombocytopenia, unspecified Ge Ya, PAINTER AND GRADER CORK 05/03/2019 D50.9 Iron deficiency anemia, unspecified Ge Ya, PAINTER AND GRADER CORK 05/03/2019 Z72.0 Tobacco use Ge Ya, PAINTER AND GRADER CORK 05/02/2019 J11.00 Influenza due to unidentified Ilia Ring M.D. influenza virus with unspecified type of pneumonia 05/02/2019 J11.00 Influenza due to unidentified Linh Adams, PAINTER AND GRADER CORK influenza virus with unspecified type of pneumonia 05/02/2019 D69.6 Thrombocytopenia, unspecified Ilia Ring M.D. 05/02/2019 J96.01 Acute respiratory failure with Linh Adams, PAINTER AND GRADER CORK hypoxia 05/02/2019 D50.9 Iron deficiency anemia, unspecified Ilia Ring M.D. 05/02/2019 D69.6 Thrombocytopenia, unspecified Linh Loragunnerluis miguel Angie, PAINTER AND GRADER CORK 05/01/2019 J18.9 Pneumonia, unspecified organism Ilia Ring M.D. 05/01/2019 J10.00 Influenza due to other identified Pedro Azul M.D. influenza virus with unspecified type of pneumonia 05/01/2019 D69.6 Thrombocytopenia, unspecified Ilia Ring M.D. 05/01/2019 J96.01 Acute respiratory failure with Pedro Azul M.D. hypoxia 05/01/2019 D50.9 Iron deficiency anemia, unspecified Ilia Ring M.D. 05/01/2019 D69.6 Thrombocytopenia, unspecified Pedro Azul M.D. 04/30/2019 R06.02 Shortness of breath Kasi Hollins M.D. Plan of Treatment 05/14/2019 - Christian Shelby, NPJ18.9 Pneumonia, unspecified organismFollow up:JUAN C: Planned vollowdrojG16.829 Elevated white blood cell count, unspecifiedComments: It is important to keep your appointment with the field project manager.D69.6 Thrombocytopenia, eiuferaoeobB77.9 Iron deficiency anemia, dsucljazbjuM98.82 Elevated C-reactive protein (CRP) Functional Status Description No Information Available Mental Status Description No Information Available Referrals Refer to Reason for Referral Status Appt Date Joseph Alcantar MD Created [address] [facility], [place] [address] [phone]
--- OUTSIDE RECORDS SUMMARY | 2019-05-21 22:45 | XMS REPORT | Continuity of Care Document ---
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 Medicine Problems Active Problems Provider Date Tobacco user Christain Shelby NP Onset: 12/03/2015 Social History Type [...] 325(65Fe) mg Tablets Ipratropium Inhale The Unknown [place]/Albuterol Contents Of 1 Vial Sulfate Via Nebulizer [...] Result H/L Range Note Laboratory test 04/30/2019 Troponin-I 0.00 ng/mL < 0.[address] (TnI) [place] [address] [phone] Comp Metabolic 04/30/2019 Sodium 134 mmol/L Low 135 -[address] [place] [address] [phone] Potassium 3.9 mmol/L Normal 3.5-5.0 Chloride 100 [...] Egfr 127.3 >60 2 Laboratory test 04/30/2019 Lactic Acid 1.1 mmol/L Normal 0.5-2.[address] [place] [address] [phone] CBC Auto Diff 04/30/2019 White Blood 12.6 High 3.5- 10.[address] Count 10^3/[place] [address] [phone] Red Blood Count 4.40 10^6/uL Normal 3.70-4.87 [...] Blood Cells % 0.2 Cell Morphology 04/30/2019 Platelet Morphology Large [address] [place] [address] [phone] Microcytosis 1+ Anisocytosis 2+ Laboratory 04/30/2019 D Dimer < 200 Normal Less 6 test finding [address] Quantitative ng/mL Than [address] [place] [address] [phone] C Reactive Protein 127.52 mg/L High <8.01 B-Type Natriuretic Peptide BNP 171 pg/mL High <=100 Blood Culture SEE RESULT BELOW 7 Influenza A & B 04/26/2019 Flu AB Disclaimer (SEE NOTE) [address] [place] [address] [phone] Influenza B Molecular POSITIVE Abnormal Negative 9 1 Troponin-I testing on Plasma Separator Tubes (PST) has a known false positive rate of 0.20-0.40%. All positive troponins reflex immediately to secondary confirmatory testing. Using the [employer] 800 Access Immunoassay systems, the 99th percentile [...] 5 Kidney failure <15 (or dialysis) 3 [facility] Severe Sepsis and Septic Shock Management Bundle [...] [address]: Daniel Colvin MD Acct: [id number] Unit: [id number] AGE: 38 Location: [address] Re04/30/19 SEX: F Status: ADM IN SPEC: [id number] PRISCILLA: 04/30/19-0129 [facility] DR: Hugo Awad MD REQ: [id number] RECD: 04/30/19-0133 STATUS: COMP FLORY DR: Christian Shelby MARGARINE CHURN OPERATOR _ SOURCE: BLOOD,VENO SPDESC: ORDERED: Blood Cult Procedure Result Reported Site Aerobic Culture Bottle Final 05/05/19- 0133 ML No Growth Day 5 Anaerobic Culture Bottle Final 05/05/19- 0133 ML No Growth Day 5 * ML - Main Lab . END OF REPORT DEPARTMENT OF PATHOLOGY, [address] [place] [address] Troy Peacock M.D. Director [facility] # [id number] 8 Suboptimal collection technique may reduce sensitivity of test. Refer to the [employer] [facility] Test Catalog for collection information: [email or web address] As with all diagnostic procedures, the laboratory results obtained should be used in conjunction with other clinical information available to the physician, including confirmation by another method, as applicable. 9 Merchandise Flow Team Leader: [id number] Procedures Date Code Description Status 04/30/2019 09566 ECHO Transthorasic Realtime 2D W Doppler & Color Flow Hosp Completed Medical Devices Description No Information Available Encounters Type Date Location Provider Dx Diagnosis Office Visit 05/04/2019 [facility] J11.00 Flu due to 8:40a Infectious Angie, MARGARINE CHURN OPERATOR unidentified flu Diseases virus w unsp type of pneumonia J96.01 Acute respiratory failure with hypoxia D69.6 Thrombocytopenia, unspecified Office Visit 05/02/2019 [facility] J11.00 Flu due to 8:39a For Infectious Anige, MARGARINE CHURN OPERATOR unidentified flu Diseases virus w unsp type of pneumonia J96.01 Acute respiratory failure with hypoxia D69.6 Thrombocytopenia, unspecified Office Visit 05/01/2019 8:37a [facility] Pedro Saunders J10.00 Flu due to [facility] Diamond Azul M.D. ident flu virus Diseases w unsp type of pneumonia J96.01 Acute respiratory failure with hypoxia D69.6 Thrombocytopenia, unspecified Assessments Date Code Description Provider 05/14/2019 J18.9 Pneumonia, unspecified organism Christian Afsaneh, MARGARINE CHURN OPERATOR 05/14/2019 D72.829 Elevated white blood cell count, Christian Afsaneh, MARGARINE CHURN OPERATOR unspecified 05/14/2019 D69.6 Thrombocytopenia, unspecified Christian Afsaneh, MARGARINE CHURN OPERATOR 05/14/2019 D50.9 Iron deficiency anemia, unspecified Christian Afsaneh, MARGARINE CHURN OPERATOR 05/14/2019 R79.82 Elevated C-reactive protein (CRP) Christian Afsaneh, MARGARINE CHURN OPERATOR 05/07/2019 D72.829 Elevated white blood cell count, Ge Ya, MARGARINE CHURN OPERATOR unspecified 05/07/2019 J11.00 Influenza due to unidentified Ge Felton, MARGARINE CHURN OPERATOR influenza virus with unspecified type of pneumonia 05/07/2019 D69.6 Thrombocytopenia, unspecified Ge Ya, MARGARINE CHURN OPERATOR 05/07/2019 D50.9 Iron deficiency anemia, unspecified Ge Ya, MARGARINE CHURN OPERATOR 05/07/2019 Z72.0 Tobacco use Ge Ya, MARGARINE CHURN OPERATOR 05/06/2019 J11.00 Influenza due to unidentified Ge Ya, MARGARINE CHURN OPERATOR influenza virus with unspecified type of pneumonia 05/06/2019 D69.6 Thrombocytopenia, unspecified Ge Ya, MARGARINE CHURN OPERATOR 05/06/2019 D50.9 Iron deficiency anemia, unspecified Ge Ya, MARGARINE CHURN OPERATOR 05/06/2019 Z72.0 Tobacco use Ge Ya, MARGARINE CHURN OPERATOR 05/05/2019 J11.00 Influenza due to unidentified Ge Ya, MARGARINE CHURN OPERATOR influenza virus with unspecified type of pneumonia 05/05/2019 D69.6 Thrombocytopenia, unspecified Ge Ya, MARGARINE CHURN OPERATOR 05/05/2019 D50.9 Iron deficiency anemia, unspecified Ge Ya, MARGARINE CHURN OPERATOR 05/05/2019 Z72.0 Tobacco use Ge Felton, MARGARINE CHURN OPERATOR 05/04/2019 J11.00 Influenza due to unidentified Ge Ya, MARGARINE CHURN OPERATOR influenza virus with unspecified type of pneumonia 05/04/2019 J11.00 Influenza due to unidentified Linh Adams, MARGARINE CHURN OPERATOR influenza virus with unspecified type of pneumonia 05/04/2019 D69.6 Thrombocytopenia, unspecified Ge Ya, MARGARINE CHURN OPERATOR 05/04/2019 J96.01 Acute respiratory failure with Linh Guidogunnerleahlayvette Adams, MARGARINE CHURN OPERATOR hypoxia 05/04/2019 D50.9 Iron deficiency anemia, unspecified Ge Ya, MARGARINE CHURN OPERATOR 05/04/2019 D69.6 Thrombocytopenia, unspecified Linh Guidogunnerluis miguel Adams, MARGARINE CHURN OPERATOR 05/04/2019 Z72.0 Tobacco use Ge Ya, MARGARINE CHURN OPERATOR 05/03/2019 J11.00 Influenza due to unidentified Ge Ya, MARGARINE CHURN OPERATOR influenza virus with unspecified type of pneumonia 05/03/2019 D69.6 Thrombocytopenia, unspecified Ge Ya, MARGARINE CHURN OPERATOR 05/03/2019 D50.9 Iron deficiency anemia, unspecified Ge Ya, MARGARINE CHURN OPERATOR 05/03/2019 Z72.0 Tobacco use Ge Ya, MARGARINE CHURN OPERATOR 05/02/2019 J11.00 Influenza due to unidentified Ilia Ring M.D. influenza virus with unspecified type of pneumonia 05/02/2019 J11.00 Influenza due to unidentified Lnih Kartik Adams, MARGARINE CHURN OPERATOR influenza virus with unspecified type of pneumonia 05/02/2019 D69.6 Thrombocytopenia, unspecified Ilia Ring M.D. 05/02/2019 J96.01 Acute respiratory failure with Linh Adams, MARGARINE CHURN OPERATOR hypoxia 05/02/2019 D50.9 Iron deficiency anemia, unspecified Ilia Ring M.D. 05/02/2019 D69.6 Thrombocytopenia, unspecified Linh Adams, MARGARINE CHURN OPERATOR 05/01/2019 J18.9 Pneumonia, unspecified organism Ilia Ring [...] Plan of Treatment 05/14/2019 - Christian Shelby, ASHERJ18.9 Pneumonia, unspecified organismFollow up:JUAN C: Planned bbnjfbboxlB05.829 Elevated white blood cell count, unspecifiedComments: It is important to keep your appointment with the shredding machine tender.D69.6 Thrombocytopenia, pdsujuorttnX81.9 Iron deficiency anemia, mlgclvinnsvC94.82 Elevated C-reactive protein (CRP) Functional Status Description No Information Available Mental Status Description No Information Available Referrals Refer to Dr Reason for Referral Status Appt Date Joseph Alcantar MD Created [address], [place] [address] [phone]
[2019-05-22 00:14] LABS: Influenza A Molecular Negative (Negative); Influenza B Molecular Negative (Negative)
== END 2019-05-22 00:53 | disposition left against medical advice (07) ==
LOC: ED 22:21
DX: R09.81 Nasal congestion (principal); Z53.21 Procedure and treatment not carried out due to patient leaving prior to being seen by health care provider
CPT/HCPCS: 99282